=== PATIENT | male | born 1940 | race African-American/Black ===

== ENCOUNTER 2017-03-15 19:06 | Inpatient (IN) ==
[2017-03-15] MEDS ORDERED: ONDANSETRON 4 MG/2 ML VIAL IV STA (20:04)
[2017-03-15] MEDS ORDERED: ALBUTEROL/IPRATROPIUM 3 ML NEB RESP TX STA (20:04)
[2017-03-15] MEDS ORDERED: FUROSEMIDE 100 MG/10 ML VIAL IV STA (20:04)
[2017-03-15] MEDS ORDERED: MORPHINE 2 MG/1 ML SYRINGE IV STA (20:04)
--- NOTE | 2017-03-15 20:23 | XRay Report ---
XR chest 1V portable Indication: Shortness of breath Comparison: 08 February 2017 Findings: The heart and mediastinum are stable in size and configuration with cardiomegaly. The pulmonary vascularity is normal in caliber. No lung infiltrates, effusions, pneumothorax or other abnormality is demonstrated. Impression: No acute cardiopulmonary disease. PROCEDURE INTERPRETED AT [facility] DEPARTMENT OF RADIOLOGY Final Report Signed by: Dr. Ramiro Us
--- NOTE | 2017-03-15 20:33 | Emergency Department Note ---
ISrinivasan Emily, am scribing for, and in the presence of, Aubrey Briones MD 20: 08. IAnselmo Charles R, MD, personally performed the services described in this documentation, ascribed by Yudith Mattson in my presence, and it is both accurate and complete . Arrival - Arrival Chief Complaint: Extremity Problem Stated Complaint: FLUID/EDEMA ED Nursing Triage Note: pt states he weighs 17 pounds more than he did 3 days ago and home health nurse sent pt here for fluid overload. pt takes lasix but says it doesnt seem to be working. Mode of Arrival: Wheelchair Limitations: No Limitations Source: Patient - History of Present Illness HPI Narrative: Pt is a 76 y/o male who came to ED with c/o SOB that has worsened last 3 days. Pt has associated sxs of orthopnea, pedal edema in bilateral lower extremities and recent weight gain, but denies chest pain or nausea. Pt has gina boots on both lower extremities with blisters, per pt. Pt notes taking his Lasix but no relief. Pt reports last hospital visit was due to SOB and he stayed for 2 weeks. Pt's PCP is Dr. Witt. PMHx of NIDDM, CAD, AR, CHF, HLD. Onset (ago): day(s) Consistency: constant Severity: moderate, severe Severity scale (1-10): 8 Quality: fullness Allergies/Adverse Reactions: Allergies Allergy/AdvReac Type Severity Reaction Status Date / Time No Known Allergies Allergy Verified 10/15/15 10:01 Home Medications: Home Medications Medication Instructions Recorded Confirmed Type Atorvastatin [Lipitor] 10 mg PO QAM 10/15/15 03/15/17 History Tiotropium Inhalation [Spiriva 18 mcg INH QAM 09/20/16 03/15/17 History Handihaler] Albuterol Sulfate [Proair HFA] 2 puffs INH QID PRN 02/08/17 03/15/17 History Aspirin Chew Tab 81 mg PO QAM 02/08/17 03/15/17 History Carvedilol [Coreg] 6.25 mg PO Q12H #60 tablet 02/16/17 03/15/17 Rx Furosemide Tab [Lasix Tab] 60 mg PO BID DIURETIC #60 tablet 02/16/17 03/15/17 Rx Isosorbide Dinitrate [Isordil] 20 mg PO TID #90 tablet 02/16/17 03/15/17 Rx hydrALAZINE TAB [Apresoline Tab] 25 mg PO TID #90 tablet 02/16/17 03/15/17 Rx metOLazone [Zaroxolyn] 2.5 mg PO DAILY #30 tablet 02/16/17 03/15/17 Rx Review of System - Review of System 12 point system: reviewed and no additional remarkable complaints except as stated - Review of System Constitutional: Present: weight gain. Absent: chills, fever Respiratory: Present: cough, respiratory distress, wheezing Cardiovascular: Present: orthopnea, edema. Absent: chest pain, palpitations, syncope Gastrointestinal: Absent: abdominal pain, nausea, vomiting Musculoskeletal: Absent: arm pain, back pain, leg pain, neck pain Skin: Absent: rash Neurological: Absent: headache Psychiatric: Absent: anxiety Medical,Surgical,& Family Hx - Medical History Cardio: History of: CHF, CAD, Hypertension, AR No history of: Cardiac Dysrhythmia, Pacemaker, PVD Psychological: No history of: Anxiety Disorders Neurology: History of: Brain Aneurysm ("around 1999") Endocrine: History of: Diabetes Mellitus (NIDDM), Dyslipidemia Rheumatology: No history of;: Systemic Lupus Erythematosus Respiratory: History of: COPD, Obstructive Sleep Apnea No history of: Pulmonary Hypertension Renal: History of: Renal Problems (CRI, stage II) Genitourinary: No history of: Recurring Urinary Tract Infections Gastrointestinal: No history of: GERD, Hepatitis, Liver Problems, Pancreatitis, Gastrointestinal Cancer Musculoskeletal: History of: Musculoskeletal Problems (osteoarthritis) No history of: Back/Neck Problems Hematology: No history of: Anemia, Bleeding Problems, Sickle Cell Disease Other: No history of: Cancer - Surgical History Cardiac Surgeries: Sugical HX of: Cardiac Catheterization (1st OM DAMEON 09/10 & pPDA DAMEON 11/11) Patient Denies: Carotid Endarterectomy, Internal Defibrillator Neurologic Surgeries: Surgical HX of: Brain Aneurysm ("around 1999"), Neurologic Surgery HEENT Surgeries: Surgical HX of: Eye Surgery Patient denies: Carotid Endarterectomy, Thyroid Surgery Orthopedic Surgeries: Patient denies;: Implanted Devices - Family History Family History: Reports;: Family Cancer, Family Heart Disease, Family Hypertension Denies;: Family Diabetes, Family Stroke - Social History Smoking Status: Former smoker Frequency of Alcohol Use: None Type of Drug Use: None Exam Vital Signs: Vital Signs Temperature 98.5 F 03/15/17 19:21 Pulse Rate 63 03/15/17 20:09 Respiratory Rate 20 03/15/17 20:09 Blood Pressure 113/66 03/15/17 19:21 O2 Sat by Pulse Oximetry 98 03/15/17 20:09 - General General appearance: alert, in no apparent distress - Head Head exam: Present: atraumatic, normocephalic - Eye Eye exam: Present: PERRL, EOMI - ENT ENT exam: Present: mucous membranes moist. Absent: mucous membranes dry - Neck Neck exam: Present: full ROM. Absent: tenderness - Chest Chest inspection: Present: symmetric chest wall rise. Absent: tenderness - Respiratory Respiratory exam: Present: rales (bilateral). Absent: normal lung sounds bilaterally (decreased breath sounds), rhonchi, wheezes - Cardiovascular Cardiovascular exam: Present: bradycardia, normal heart sounds - Abdominal Exam Abdominal exam: Present: soft, distention. Absent: tenderness, guarding, rebound - Extremities Exam Extremities exam: Present: full ROM, pedal edema (+3 weeping; with bilateral gina boots). Absent: tenderness - Neurological Exam Neurological exam: Present: alert, oriented X3, CN II-XII intact. Absent: motor sensory deficit - Psychiatric Psychiatric exam: Present: normal affect, normal mood - Skin Skin exam: Present: warm, dry Course - Consultations Consultation #1: Hospitalist will admit patient Time: 21:48 Results - Labs CBC & BMP: 03/15/17 20:34 03/15/17 20:34 Lab Results: I have reviewed the patients labs Labs: Laboratory Tests 03/15/17 20:34 Hgb 11.1 L Hct 33.6 L MCV 83.8 L RDW 18.6 H Neut % (Auto) 77.0 H Lymph % (Auto) 12.9 L Lymph # (Auto) 1.1 L - Diagnostic Findings Procedure: Chest x-ray: report reviewed by me (No acute cardiopulmonary disease. ) Critical Care Time Critical Care Time: Yes Total Critical Care Time: 60 Disposition Clinical Impression: Anasarca associated with disorder of kidney, Chronic renal failure, Acute on chronic congestive heart failure, Elevated troponin, Obstructive sleep apnea, Ischemic cardiomyopathy, Obesity, Lower extremity edema, Weight gain Case discussed with: patient Disposition: Still a Patient Condition: Stable Time of Disposition: 21:49
[2017-03-15 20:56] LABS: Basophils % 0.1 % (0.0-0.8); Eosinophils % 0.4 % (0.00-10.9); Hematocrit 33.6 VOL% (42.0-52.0); Hemoglobin 11.1 GM/DL (14.0-18.0); Immature Granulocytes % 0.2 %; Immature Granulocytes Absolute 0.02 #; Lymphocytes # 1.1 10*3/uL (1.4-4.0); Lymphocytes % 12.9 % (21.2-54.2); Mean Corpuscular Hemoglobin 28 PG (27-34); Mean Corpuscular Volume 83.8 FL (87-102); Mean Platelet Volume 11.2 FL (9.6-12.0); Monocytes # 0.8 10*3/uL (0.11-0.8); Monocytes % 9.4 % (1.7-12.7); Neutrophils # 6.6 10*3/uL (1.4-7.4); Platelet Count 145 T/CUMM (130-400); Red Blood Count 4.01 MC/CUMM (3.8-5.5); Red Cell Distribution Width 18.6 % (9.3-17.3); White Blood Count 8.5 T/CUMM (4-12)
[2017-03-15] MEDS ORDERED: MORPHINE 2 MG/1 ML SYRINGE ONE (20:58)
[2017-03-15] MEDS ORDERED: ONDANSETRON 4 MG/2 ML VIAL ONE (20:58)
[2017-03-15] MEDS ORDERED: FUROSEMIDE 100 MG/10 ML VIAL ONE (20:58)
[2017-03-15 21:07] LABS: INR 1.3; PT Patient Result 13.6 SECS
[2017-03-15 21:28] LABS: Albumin 3.5 G/DL (3.4-5.0); Bilirubin,Total 2.3 MG/DL (0.2-1.0); Calcium 8.6 MG/DL (8.5-10.1); Magnesium 2.4 MG/DL (1.8-2.4); Osmolality,Calculated 289.3 MOS/KG (273-304); Potassium 4.7 MMOL/L (3.5-5.1); Total Protein 7.5 G/DL (6.4-8.3)
[2017-03-15 21:36] LABS: Troponin I Only 0.328 NG/ML (0.00-0.045)
[2017-03-15] MEDS ORDERED: ONDANSETRON 4 MG/2 ML VIAL IV PRN (21:49)
[2017-03-15] MEDS ORDERED: ALBUTEROL 2.5 MG/3 ML NEB RESP TX PRN (22:07)
[2017-03-15] MEDS: ENOXAPARIN 30 MG/0.3 ML SYRINGE SUBCUT SCH (23:45)
[2017-03-15] MEDS: CARVEDILOL 6.25 MG TABLET PO SCH (23:47)
--- NOTE | 2017-03-16 00:54 | Hospitalist History & Physical ---
Assessment and Plan (1) CHF (congestive heart failure) Status: Chronic Assessment and plan: Last echocardiogram 11/23/2016 revealed a severely reduced LV systolic function with global hypokinesis, EF 10-15%. BNP >4000. IV Lasix 40mg BID. Continue metolazone. Followed by Dr. Biswas. Consult cardiology. Current Visit: No Qualifiers: Congestive heart failure type: combined Congestive heart failure chronicity : acute on chronic Qualified Code(s): I50.43 - Acute on chronic combined systolic (congestive) and diastolic (congestive) heart failure (2) Essential hypertension Status: Chronic Assessment and plan: Well controlled on current meds. Continue home meds. Monitor BP. Current Visit: No (3) Elevated troponin I level Status: Acute Assessment and plan: Troponin. >0.3. Per hospital records, this appears to be chronic. Will recheck in am. Cardiology has been consulted. Current Visit: No (4) Peripheral edema Status: Chronic Assessment and plan: Patient weeping from CHF exacerbation. Lower extremities wrapped today by home health nurse. Consult wound care for continued management. Current Visit: No (5) CKD (chronic kidney disease) stage 3, GFR 30-59 ml/min Status: Chronic Assessment and plan: Creatinine 2.5 today. This appears to be patient's baseline. Will cautious diurese. Consult nephrology as necessary. Current Visit: No (6) Weight gain Status: Acute Current Visit: Yes History of Present Illness Chief complaint: CHF exacerbation History of present illness: Mr. Rangel is a 76 year old male with a past medical history significant for CHF, hypertension, CAD with previous stents presents to the ED with worsening shortness of breath and bilateral lower extremity edema with onset 3 days ago. The patient states that his home health nurse recommended he return to the hospital today after noticing that he had gained 9 pounds since Monday and that the weeping in his lower extremities is not improving as hoped. He reports that his has been compliant with his home medications, however he does not feel as though the Lasix is working as well as it has in the past. He notes that he is not having to urinate as frequently as he was accustomed to with diuretics. He was recently hospitalized here a few weeks ago for similar complaints. The patient was seen on the telemetry floor today. He had been diuresed with 60 mg IV Lasix and received a duoneb with minimum response. On exam, he denies headache, chest pain, N/V. He does have both legs bandaged and does not appear to be weeping through the bandage. CXR shows no acute cardiopulmonary process. Labs reveal H7H 11.1 and 33.6, BUN 38, Cr 2.5, Trop 0.320, BNP 4014. The patient is followed by Dr. Biswas for cardiology. He is admitted to the hospital medicine service for further evaluation and treatment. He is a full code. Home Medications Medication Instructions Recorded Confirmed Type Atorvastatin [Lipitor] 10 mg PO QAM 10/15/15 03/15/17 History Tiotropium Inhalation [Spiriva 18 mcg INH QAM 09/20/16 03/15/17 History Handihaler] Albuterol Sulfate [Proair HFA] 2 puffs INH QID PRN 02/08/17 03/15/17 History Aspirin Chew Tab 81 mg PO QAM 02/08/17 03/15/17 History Carvedilol [Coreg] 6.25 mg PO Q12H #60 tablet 02/16/17 03/15/17 Rx Furosemide Tab [Lasix Tab] 60 mg PO BID DIURETIC #60 tablet 02/16/17 03/15/17 Rx Isosorbide Dinitrate [Isordil] 20 mg PO TID #90 tablet 02/16/17 03/15/17 Rx hydrALAZINE TAB [Apresoline Tab] 25 mg PO TID #90 tablet 02/16/17 03/15/17 Rx metOLazone [Zaroxolyn] 2.5 mg PO DAILY #30 tablet 02/16/17 03/15/17 Rx Allergies Allergy/AdvReac Type Severity Reaction Status Date / Time No Known Allergies Allergy Verified 10/15/15 10:01 Medical,Surgical,& Family Hx - Medical History Cardio: History of: CHF, CAD, Hypertension, AR No history of: Cardiac Dysrhythmia, Pacemaker, PVD Psychological: No history of: Anxiety Disorders Neurology: History of: Brain Aneurysm ("around 1999") Endocrine: History of: Diabetes Mellitus (NIDDM), Dyslipidemia Rheumatology: No history of;: Systemic Lupus Erythematosus Respiratory: History of: COPD, Obstructive Sleep Apnea No history of: Pulmonary Hypertension Renal: History of: Renal Problems (CRI, stage II) Genitourinary: No history of: Recurring Urinary Tract Infections Gastrointestinal: No history of: GERD, Hepatitis, Liver Problems, Pancreatitis, Gastrointestinal Cancer Musculoskeletal: History of: Musculoskeletal Problems (osteoarthritis) No history of: Back/Neck Problems Hematology: No history of: Anemia, Bleeding Problems, Sickle Cell Disease Other: No history of: Cancer - Surgical History Cardiac Surgeries: Sugical HX of: Cardiac Catheterization (1st OM [facility] 09/10 & pPDA DAMEON 11/11) Patient Denies: Carotid Endarterectomy, Internal Defibrillator Neurologic Surgeries: Surgical HX of: Brain Aneurysm ("around 1999"), Neurologic Surgery HEENT Surgeries: Surgical HX of: Eye Surgery Patient denies: Carotid Endarterectomy, Thyroid Surgery Orthopedic Surgeries: Patient denies;: Implanted Devices - Family History Family History: Reports;: Family Cancer, Family Heart Disease, Family Hypertension Denies;: Family Diabetes, Family Stroke - Social History Smoking Status: Former smoker Frequency of Alcohol Use: None Type of Drug Use: None Marital Status: Single Lives With:: Alone Functional capacity: independent ambulation - Constitutional Constitutional: Present: fatigue, weight gain. Absent: fever(s), frequent falls , headache(s) - EENT Eyes: Absent: blurry vision, loss of vision Nose, mouth and throat: Absent: headache(s), vertigo - Cardiovascular Cardiovascular: Present: dyspnea, dyspnea on exertion, edema. Absent: chest pain at rest, chest pain with activity, lightheadedness - Respiratory Respiratory: Present: dyspnea, dyspnea on exertion. Absent: cough, wheezing, pain on inspiration - Gastrointestinal Gastrointestinal: Absent: abdominal pain, constipation, diarrhea, nausea, vomiting - Genitourinary Genitourinary: Absent: difficulty urinating, dysuria - Neurological Neurological: Absent: abnormal speech, confusion, dizziness, numbness, syncope - Psychiatric Psychiatric: Absent: anxiety, depression - Endocrine Endocrine: Absent: cold intolerance, fatigue, heat intolerance - Hematologic/Lymphatic Hematologic/Lymphatic: Absent: easy bleeding, easy bruising Exam - Constitutional Vitals: Period Temp Pulse Resp BP Sys/[place] Pulse Ox Last 24 Hr 98.3 F 62-64 20-20 108-128/74-80 91-94 General appearance: no acute distress, morbidly obese - Head Head exam: Present: normal inspection, normocephalic, atraumatic - Eye Eye exam: Present: EOMI Pupils: Present: ABY - Neck Neck exam: Present: normal inspection. Absent: lymphadenopathy, tenderness - Respiratory Respiratory exam: Present: decreased breath sounds. Absent: rales, rhonchi - Cardiovascular Cardiovascular exam: Present: regular rate and rhythm - GI/Abdominal GI/Abdominal exam: Present: normal bowel sounds. Absent: mass, tenderness, rebound - Extremities Exam Extremities exam: Present: edema - Back Exam Back exam: Absent: CVA tenderness (L), CVA tenderness (R) - Neurological Exam Neurological exam: Present: alert, oriented X3, CN II-XII intact - Psychiatric Psychiatric exam: Present: normal affect, normal mood - Skin Skin exam: Present: normal color, warm Results - Labs CBC & BMP: 03/15/17 20:34 03/15/17 20:34 Lab Results: I have reviewed the past 24 hour labs - EKG EKG results: interpreted by MIHAID - Diagnostic Findings Procedure: Chest x-ray: image reviewed by me, report reviewed by me
[2017-03-16 06:06] LABS: Calcium 8.1 MG/DL (8.5-10.1); Magnesium 2.4 MG/DL (1.8-2.4); Osmolality,Calculated 292.1 MOS/KG (273-304); Potassium 4.5 MMOL/L (3.5-5.1)
[2017-03-16 06:08] LABS: Troponin I Only 0.299 NG/ML (0.00-0.045)
[2017-03-16] MEDS: IPRATROPIUM 500 MCG/2.5 ML NEB RESP TX SCH ×4 (06:57→18:48)
--- NOTE | 2017-03-16 08:22 | EKG Report ---
Stationary ECG Study [facility] ER Test Date: 03/15/2017 8:38:20 PM Pat Name: MARIPOSA ERVIN Department: Room: 293 Gender: M Region Manager: : 1940 Requested by: Aubrey Pena Order Number: [id number] Reading MD: PEPE ÁLVAREZ Intervals [place] Rate: 64 P: 24 OK: 172 QRS: 14 QRSD: 116 T: 157 QT: 465 QTc: 474 Interpretive Statements SINUS RHYTHM WITH OCCASIONAL VENTRICULAR PREMATURE COMPLEXES MODERATE INTRAVENTRICULAR CONDUCTION DELAY ABNORMAL ST-T WAVE, NONDIAGNOSTIC Electronically Signed On 03-16-17 11:25:37 CDT by PEPE ÁLVAREZ [email or web address]
[2017-03-16] MEDS: ASPIRIN CHEW 81 MG TABLET PO SCH (09:25)
[2017-03-16] MEDS: ATORVASTATIN 20 MG TABLET PO SCH (09:25)
[2017-03-16] MEDS: metOLazone 2.5 MG TABLET PO SCH (09:28)
[2017-03-16] MEDS: FUROSEMIDE 40 MG/4 ML VIAL IV SCH ×2 (09:29→16:22)
[2017-03-16] MEDS: CARVEDILOL 6.25 MG TABLET PO SCH ×2 (09:29→23:57)
[2017-03-16] MEDS: ISOSORBIDE DINITRATE 20 MG TABLET PO SCH ×3 (09:29→22:22)
[2017-03-16] MEDS: hydrALAZINE 25 MG TABLET PO SCH ×3 (09:29→22:22)
[2017-03-16 10:55] LABS: Troponin I Only 0.305 NG/ML (0.00-0.045)
[2017-03-16] MEDS ORDERED: SKIN HEALING OINT (AQUAPHOR) 50 GM TUBE TOP PRN (11:19)
--- NOTE | 2017-03-16 15:53 | Cardiology Consult Note ---
Husam Salazar Vanessa RN, am scribing for, and in the presence of, Josemanuel Biswas MD 15:53. Assessment and Plan - Time spent with patient Time spent with patient: Greater than 30 minutes (1) Acute on chronic congestive heart failure Status: Acute Current Visit: Yes (2) Elevated troponin Status: Acute Current Visit: Yes (3) Obstructive sleep apnea Status: Acute Current Visit: Yes (4) Ischemic cardiomyopathy Status: Chronic Current Visit: Yes (5) Obesity Status: Chronic Current Visit: Yes Qualifiers: Obesity type: due to excess calories (6) Chronic renal insufficiency, stage III (moderate) Status: Acute Current Visit: No History of Present Illness - Data of Consult Patient: known to practice within the last 3 years Consult date: 03/16/17 Requesting Physician: Arnel Wayne - Consult Narrative Reason for consult: SOB, CHF exacerbation History of present illness: PRIMARY UROGYNAECOLOGIST: DR. JAY BISWAS PCP:[facility] CONSULT NOTE: SOB, CHF EXACERBATION Mr. Rangel is a 76 year old black male routinely followed by cardiology. Past medical history includes ischemic cardiomyopathy, CHF with recurrent exacerbations requiring hospitalizations in October and December this year, obstructive sleep apnea, type 2 diabetes with peripheral neuropathy, COPD, hypertension, coronary artery disease with previously placed right coronary artery stent, and degenerative arthritis of the knees. He is a former tobacco user. In November 23, 2015, patient had an abnormal but stable exercise stress test which demonstrated inferior scar, no ischemia, and an ejection fraction of 32% with poor work capacity. Per echocardiogram November 23, 2016, global hypokinesis with an ejection fraction of 10-15%, normal diastolic function, mild LVH, moderate biatrial enlargement, moderate to severe TR and pulmonary hypertension with a PA pressure 50 mmHg. Last admission for CHF exacerbation was February 08 - February 16. During that admission, his Lasix dosage was increased to 60 mg by mouth twice daily and beta-kylee decreased. New medications added include Isordil, metolazone, and hydralazine. After discharge home, Mr. Rangel has been feeling relatively well until approximately 3 days ago when he noticed his chronic shortness of breath worsening and an increase in bilateral lower extremity edema. Home health nurse noted he had gained 9 pounds since Monday, weeping of his lower extremities not improved, and he was referred to the emergency room for further evaluation. Reports he has been compliant with medications but recently Lasix has not been as effective as it has been in the past. BNP on admission 4089. Received Lasix 60 mg IV while in the emergency room with minimal output. He was admitted to the telemetry floor per hospital medicine for treatment of acute on chronic systolic heart failure with a depressed ejection fraction of 10-15%. Cardiology consulted for further treatment and recommendations. Patient seen and examined. Upon further interview with patient, he reports that he has not been taking his medications as prescribed at previous discharge. He tells me that he is not taking "a couple of those blood pressure medicines" but he cannot specify which ones and attributes this to his sister not picking them up from the pharmacy. Reports his shortness of breath is improved, and he feels like he is breathing better this morning. Patient's biggest complaint is of bilateral lower extremity weeping and not urinating as well over the past week. Sinus rhythm per telemetry monitoring with pulse rate in the 60s, and EKG is without finding for acute ischemic change. Blood pressure is stable at 110/70. He has not had any recent or current chest pain. Labs reviewed. WBC 8500. H&H 11.1 and 33.6 with MCV 83.8. Sodium 142. Potassium 4.5. Chloride 108. Magnesium 2.4. Creatinine is 2.5 with a GFR of 39. (Review of old records shows this is near baseline creatinine-nephrology to evaluate). Troponin level 2 0.320, 0.299 (chronically elevated) Cardiology addendum Patient examined and chart reviewed and discussed with nurse Corin Brown RN. 76-year-old man with ischemic cardia myopathy, EF 15% range. Readmitted with recurrent systolic and diastolic heart failure. BNP level 4014 Chest x-ray Marked cardiomegaly globular appearance with cephalization of flow O2 sat 97 on 2 L cannula blood pressure 110/76 Creatinine 2.50 BUN 40 potassium 4.5 stable. Status post non-Q-wave posterior infarction with CHF September 26, 2012 OM stent Status post PDA stent November 01, 2012 Abnormal but stable exercise Cardiolite stress test November 23, 2015 demonstrating inferior scar, no ischemia, EF 30% and poor work capacity Recurrent admissions for CHF September 21, 2016 and again November 23, 2016. Echo done in October showed ejection fraction of 15% range with diastolic dysfunction and moderate TR PA pressure 55 Longtime tobacco abuse Obstructive sleep apnea Chronic renal failure Obesity Plan Nasal cannula O2 2 L/min 40 mg Lasix IV twice daily Duo nebs Carvedilol 6.2 mg twice daily Hydralazine 25 g 3 times daily 30 mg subcu Lovenox BMP a.m. CC: Ana Lilia Quiles MD - Home Medications and Allergies Home Medications: Home Medications Medication Instructions Recorded Confirmed Type Atorvastatin [Lipitor] 10 mg PO QAM 10/15/15 03/15/17 History Tiotropium Inhalation [Spiriva 18 mcg INH QAM 09/20/16 03/15/17 History Handihaler] Albuterol Sulfate [Proair HFA] 2 puffs INH QID PRN 02/08/17 03/15/17 History Aspirin Chew Tab 81 mg PO QAM 02/08/17 03/15/17 History Carvedilol [Coreg] 6.25 mg PO Q12H #60 tablet 02/16/17 03/15/17 Rx Furosemide Tab [Lasix Tab] 60 mg PO BID DIURETIC #60 tablet 02/16/17 03/15/17 Rx Isosorbide Dinitrate [Isordil] 20 mg PO TID #90 tablet 02/16/17 03/15/17 Rx hydrALAZINE TAB [Apresoline Tab] 25 mg PO TID #90 tablet 02/16/17 03/15/17 Rx metOLazone [Zaroxolyn] 2.5 mg PO DAILY #30 tablet 02/16/17 03/15/17 Rx Allergies/Adverse Reactions: Allergies Allergy/AdvReac Type Severity Reaction Status Date / Time No Known Allergies Allergy Verified 10/15/15 10:01 - Constitutional Constitutional: Present: as per HPI - EENT Eyes: Present: as per HPI Nose, mouth and throat: Present: as per HPI - Cardiovascular Cardiovascular: Present: as per HPI - Respiratory Respiratory: Present: as per HPI - Gastrointestinal Gastrointestinal: Present: as per HPI - Genitourinary Genitourinary: Present: as per HPI - Neurological Neurological: Present: as per HPI - Psychiatric Psychiatric: Present: as per HPI - Endocrine Endocrine: Present: as per HPI - Hematologic/Lymphatic Hematologic/Lymphatic: Present: as per HPI Medical,Surgical,& Family Hx - Medical History Cardio: History of: CHF, CAD, Hypertension, [place] No history of: Cardiac Dysrhythmia, Pacemaker, PVD Psychological: No history of: Anxiety Disorders Neurology: History of: Brain Aneurysm ("around 1999") Endocrine: History of: Diabetes Mellitus (NIDDM), Dyslipidemia Rheumatology: No history of;: Systemic Lupus Erythematosus Respiratory: History of: COPD, Obstructive Sleep Apnea No history of: Pulmonary Hypertension Renal: History of: Renal Problems (CRI, stage II) Genitourinary: No history of: Recurring Urinary Tract Infections Gastrointestinal: No history of: GERD, Hepatitis, Liver Problems, Pancreatitis, Gastrointestinal Cancer Musculoskeletal: History of: Musculoskeletal Problems (osteoarthritis) No history of: Back/Neck Problems Hematology: No history of: Anemia, Bleeding Problems, Sickle Cell Disease Other: No history of: Cancer - Surgical History Cardiac Surgeries: Sugical HX of: Cardiac Catheterization (1st OM DAMEON 09/10 & pPDA DAMEON 11/11) Patient Denies: Carotid Endarterectomy, Internal Defibrillator Neurologic Surgeries: Surgical HX of: Brain Aneurysm ("around 1999"), Neurologic Surgery HEENT Surgeries: Surgical HX of: Eye Surgery Patient denies: Carotid Endarterectomy, Thyroid Surgery Orthopedic Surgeries: Patient denies;: Implanted Devices - Family History Family History: Reports;: Family Cancer, Family Heart Disease, Family Hypertension Denies;: Family Diabetes, Family Stroke - Social History Smoking Status: Former smoker Frequency of Alcohol Use: None Type of Drug Use: None Physical Examination Vital Signs Temp Pulse Resp BP Pulse Ox 98.5 F 83 22 113/66 91 L 03/15/17 19:21 03/15/17 19:21 03/15/17 19:21 03/15/17 19:21 03/15/17 19:21 General: Present: No Apparent Distress, Other (Morbid obesity) HEENT: Present: Normocephaly. Absent: Pallor Neck: Present: Supple Neck, Midline Trachea, No Masses, No Bruit Cardiac: Present: Reg Rate and Rhythm, No Murmur. Absent: Tachycardia, Bradycardia Lungs: Present: Decreased Breath Sounds, No Wheezes, No Rhonchi Neuro: Present: Weakness, Grossly Intact. Absent: Numbness, Tingling, Resting Tremor, Essential Tremor Abdomen: Present: Soft, Other (Obese). Absent: Tender, Firm, Distended Skin: Present: Other (Bilateral lower extremities with compression dressings R/ T peripheral edema with weeping are dry and intact) Musculoskeletal: Present: Decreased Range of Motion Extremities: Present: No Cyanosis, Normal Upper Extr. Pulses (2-3+), Normal Lower Extr. Pulses (1-2+), Edema (BLE with 3+ pitting edema) Result/EKG - Labs CBC & BMP: 03/15/17 20:34 03/16/17 05:04 Lab Results: I have reviewed the past 24 hour labs Labs: Laboratory Results - last 24 hr 03/15/17 03/16/17 03/16/17 23:20 05:04 05:04 Sodium 142 Potassium 4.5 Chloride 108 H Carbon Dioxide 25 Anion Gap 13.5 BUN 40 H Creatinine 2.50 H GFR Calculation 39 BUN/Creatinine Ratio 16.00 Glucose 104 Calculated Osmolality 292.1 Calcium 8.1 L Magnesium 2.4 Total Creatine Kinase 73 67 CK-MB (CK-2) < 1.0 < 1.0 Troponin I 0.320 H 0.299 H - Diagnostic Findings Procedure: Chest x-ray: image reviewed by me, report reviewed by me - EKG EKG results: interpreted by me, no acute changes EKG shows: sinus rhythm IZulay Thomas, MD, personally performed the services described in this documentation, ascribed by Rupali Weiner RN in my presence, and it is both accurate and complete 553 .
[2017-03-16] MEDS: ENOXAPARIN 30 MG/0.3 ML SYRINGE SUBCUT SCH (22:20)
[2017-03-17] MEDS: IPRATROPIUM 500 MCG/2.5 ML NEB RESP TX SCH ×4 (07:37→21:03)
[2017-03-17] MEDS: metOLazone 2.5 MG TABLET PO SCH (09:01)
[2017-03-17] MEDS: hydrALAZINE 25 MG TABLET PO SCH ×3 (09:01→21:52)
[2017-03-17] MEDS: ATORVASTATIN 20 MG TABLET PO SCH (09:01)
[2017-03-17] MEDS: ASPIRIN CHEW 81 MG TABLET PO SCH (09:01)
[2017-03-17] MEDS: ISOSORBIDE DINITRATE 20 MG TABLET PO SCH ×3 (09:02→23:09)
[2017-03-17] MEDS: FUROSEMIDE 40 MG/4 ML VIAL IV SCH ×2 (09:02→16:30)
[2017-03-17] MEDS: CARVEDILOL 6.25 MG TABLET PO SCH ×2 (10:24→23:09)
[2017-03-17] MEDS: ACETAMINOPHEN 325 MG TABLET PO PRN (11:01)
--- NOTE | 2017-03-17 13:17 | Hospitalist Progress Note ---
Assessment and Plan (1) Acute on chronic congestive heart failure Status: Acute Assessment and plan: 1)acute on chronic CHF- diuresing, continue meds. LE edema a little better, breathing easily, no orthopnea. 2)DM 3)CKD- repeat Creatinine in am to monitor his reanl function while diuresing. 4)LE wounds/weeping- addressed by wound care nurse. The skin breakdown is due to LE edema. 5)HTN- controlled 6)elevated troponin- this is his baseline. Current Visit: Yes (2) status post brain aneurysm clipping Status: Chronic Current Visit: No (3) Type 2 diabetes mellitus Status: Chronic Current Visit: No Qualifiers: Diabetes mellitus complication detail: with chronic kidney disease Chronic kidney disease stage: stage 3 (moderate) (4) CAD (coronary artery disease) Status: Chronic Current Visit: No Qualifiers: Coronary Disease-Associated Artery/Lesion type: standing [place] artery (5) CKD (chronic kidney disease) stage 3, GFR 30-59 ml/min Status: Chronic Current Visit: No (6) Chronic renal failure Status: Acute Current Visit: Yes (7) Obstructive sleep apnea Status: Acute Current Visit: Yes Hospitalist: Subjective Interval history: Mr Rangel is up on the side of the bed, comfortable. He had a sharp pain in his left shoulder blade when he bent over earlier, but it has been relieved with Tylenol. He reports having good UOP. Exam - Constitutional Vitals: Period Temp Pulse Resp BP Sys/[place] Pulse Ox Last 24 Hr 97.3 F-97.4 F 60-77 16-20 117-134/58-70 85-100 General appearance: no acute distress (breathing comfortably, talking easily), morbidly obese - Eye Eye exam: Present: EOMI. Absent: scleral icterus - Respiratory Respiratory exam: Present: clear to auscultation bilaterally - Cardiovascular Cardiovascular exam: Present: regular rate and rhythm - GI/Abdominal GI/Abdominal exam: Present: normal bowel sounds, soft - Extremities Exam Extremities exam: Present: edema (legs dressed, dry) - Neurological Exam Neurological exam: Present: alert, oriented X3 - Psychiatric Psychiatric exam: Present: normal affect, normal mood Results - Labs CBC & BMP: 03/15/17 20:34 03/16/17 05:04 Lab Results: I have reviewed the past 24 hour labs
--- NOTE | 2017-03-17 14:17 | Cardiology Progress Note ---
Husam Salazar Vanessa, RN, am scribing for, and in the presence of, Josemanuel Biswas MD 14:17. Assessment and Plan - Time spent with patient Time spent with patient: Greater than 30 minutes (1) Acute on chronic congestive heart failure Status: Acute Current Visit: Yes (2) Elevated troponin Status: Acute Current Visit: Yes (3) Obstructive sleep apnea Status: Acute Current Visit: Yes (4) Ischemic cardiomyopathy Status: Chronic Current Visit: Yes (5) Obesity Status: Chronic Current Visit: Yes Qualifiers: Obesity type: due to excess calories (6) Chronic renal insufficiency, stage III (moderate) Status: Acute Current Visit: No Cardiology - PN: Subj Interval history: PRIMARY MANAGER CRITICAL CARE UNIT: DR. JAY BISWAS PCP:[facility] CARDIOLOGY CONSULT NOTE: SOB, CHF EXACERBATION Mr. Rangel is a 76 year old black male routinely followed by cardiology. Past medical history includes ischemic cardiomyopathy, CHF with recurrent exacerbations requiring hospitalizations in October and December this year, obstructive sleep apnea, type 2 diabetes with peripheral neuropathy, COPD, hypertension, coronary artery disease with previously placed right coronary artery stent, and degenerative arthritis of the knees. He is a former tobacco user. In November 23, 2015, patient had an abnormal but stable exercise stress test which demonstrated inferior scar, no ischemia, and an ejection fraction of 32% with poor work capacity. Per echocardiogram November 23, 2016, global hypokinesis with an ejection fraction of 10-15%, normal diastolic function, mild LVH, moderate biatrial enlargement, moderate to severe TR and pulmonary hypertension with a PA pressure 50 mmHg. Last admission for CHF exacerbation was February 08 - February 16. During that admission, his Lasix dosage was increased to 60 mg by mouth twice daily and beta-kylee decreased. New medications added include Isordil, metolazone, and hydralazine. After discharge home, Mr. Rangel has been feeling relatively well until approximately 3 days ago when he noticed his chronic shortness of breath worsening and an increase in bilateral lower extremity edema. Home health nurse noted he had gained 9 pounds since Monday, weeping of his lower extremities not improved, and he was referred to the emergency room for further evaluation. Reports he has been compliant with medications but recently Lasix has not been as effective as it has been in the past. BNP on admission 4089. Received Lasix 60 mg IV while in the emergency room with minimal output. He was admitted to the telemetry floor per hospital medicine for treatment of acute on chronic systolic and diastolic heart failure with a depressed ejection fraction of 10-15%. Cardiology consulted for further treatment and recommendations. MARCH 17, 2017: Mr. Lares is sleeping soundly this morning after breakfast with great appetite. No orthopnea or acute distress noted. He wakes easily and denies acute dyspnea, chest discomfort. He reports bilateral lower extremities discomfort improved after compression dressings placed yesterday. Systolic BP 120-135 mmHg. Sinus rhythm, pulse rate 60s with occasional PAC. No ectopy or arrhythmia. No labs available this morning for review. Cardiology addendum Patient examined and chart reviewed. Breathing a little easier. Weight 123.7 kg Blood pressure 124/70 Telemetry shows sinus rhythm rare PVCs Regular rhythm with no gallop Decreased breath sounds few crackles at the bases bilaterally Chronic leg edema Plan Duo nebs 40 mg Lasix IV twice daily Hydralazine 25 mg 3 times daily Coreg 6.25 mg twice daily BMP in a.m. Exam (Progress Note) - Constitutional Vitals: Period Temp Pulse Resp BP Sys/[place] Pulse Ox Last 24 Hr 97.3 F-97.8 F 60-68 16-20 99-134/58-70 85-100 Exam: General: Present: No Apparent Distress, Other (Morbid obesity) HEENT: Present: Normocephaly. Absent: Pallor Neck: Present: Supple Neck, Midline Trachea, No Masses, No Bruit Cardiac: Present: Reg Rate and Rhythm, No Murmur. Absent: Tachycardia, Bradycardia Lungs: Present: Decreased Breath Sounds with mild expiratory wheeze. No Rhonchi Neuro: Present: Weakness, Grossly Intact. Absent: Numbness, Tingling, Resting Tremor, Essential Tremor Abdomen: Present: Soft, Other (Obese). Absent: Tender, Firm, Distended Skin: Present: Other (Bilateral lower extremities with compression dressings R/ T peripheral edema with weeping are dry and intact) Musculoskeletal: Present: Decreased Range of Motion Extremities: Present: No Cyanosis, Normal Upper Extr. Pulses (2-3+), Normal Lower Extr. Pulses (1-2+), Edema (BLE with 2+ pitting edema) Result/EKG - Labs CBC & BMP: 03/15/17 20:34 03/16/17 05:04 Lab Results: I have reviewed the past 24 hour labs Labs: Laboratory Results - last 24 hr 03/16/17 09:44 Total Creatine Kinase 70 CK-MB (CK-2) < 1.0 Troponin I 0.305 H - EKG EKG results: interpreted by me, no acute changes EKG shows: sinus rhythm IZulay Thomas, MD, personally performed the services described in this documentation, ascribed by Rupali Weiner RN in my presence, and it is both accurate and complete 417 .
[2017-03-17] MEDS: ENOXAPARIN 30 MG/0.3 ML SYRINGE SUBCUT SCH (23:09)
[2017-03-18 04:53] LABS: Basophils % 0.1 % (0.0-0.8); Eosinophils # 0.2 10*3/uL (0.0-0.87); Eosinophils % 2.5 % (0.00-10.9); Hemoglobin 10.3 GM/DL (14.0-18.0); Immature Granulocytes % 0.3 %; Immature Granulocytes Absolute 0.02 #; Lymphocytes # 1.4 10*3/uL (1.4-4.0); Lymphocytes % 17.8 % (21.2-54.2); Mean Corpuscular HGB Conc 32.2 GM/DL (32-36); Mean Corpuscular Hemoglobin 27 PG (27-34); Mean Corpuscular Volume 84.7 FL (87-102); Mean Platelet Volume 11.1 FL (9.6-12.0); Monocytes # 0.8 10*3/uL (0.11-0.8); Neutrophils # 5.5 10*3/uL (1.4-7.4); Neutrophils % 69.3 % (38.7-73.9); Platelet Count 152 T/CUMM (130-400); Red Blood Count 3.78 MC/CUMM (3.8-5.5); Red Cell Distribution Width 18.9 % (9.3-17.3); White Blood Count 7.9 T/CUMM (4-12)
[2017-03-18 05:37] LABS: Calcium 8.1 MG/DL (8.5-10.1); Magnesium 2.3 MG/DL (1.8-2.4); Osmolality,Calculated 289.4 MOS/KG (273-304); Potassium 4.4 MMOL/L (3.5-5.1)
[2017-03-18] MEDS: IPRATROPIUM 500 MCG/2.5 ML NEB RESP TX SCH ×4 (07:44→19:02)
--- NOTE | 2017-03-18 08:34 | Cardiology Progress Note ---
Assessment and Plan (1) Acute on chronic congestive heart failure Status: Acute Current Visit: Yes (2) Elevated troponin Status: Acute Current Visit: Yes (3) Obstructive sleep apnea Status: Acute Current Visit: Yes (4) Ischemic cardiomyopathy Status: Chronic Current Visit: Yes (5) Obesity Status: Chronic Current Visit: Yes Qualifiers: Obesity type: due to excess calories (6) Chronic renal insufficiency, stage III (moderate) Status: Acute Current Visit: No Cardiology - PN: Subj Interval history: Cardiology note 76-year-old man admitted with recurrent CHF. Ischemic cardiomyopathy EF 15% Has scrotal and leg edema. Blood pressure 130/70 O2 sat 95% room air Regular rhythm no gallop Decreased breath sounds few basilar crackles only Edematous legs Lab data White count 7.9 hemoglobin 10.3 hematocrit 32.0 Sodium 140 potassium 4.4 chloride 102 CO2 29 BUN 42 creatinine 2.50 Impression Recurrent systolic and diastolic heart failure Ischemic cardiomyopathy EF 15% range Status post non-Q-wave posterior infarction with CHF September 26, 2012 with OM stent status post PDA stent November 01, 2012 Abnormal but stable exercise cardiac stress test November 23, 2015 demonstrating inferior scar, no ischemia 30% and poor work capacity Obstructive sleep apnea Chronic renal failure Obesity Plan Continue Lasix 40 mg IV twice daily Continue Zaroxolyn 2.5 mg daily Duo nebs BMP in a.m. Increase hydralazine 50 mg 3 times daily Exam (Progress Note) - Constitutional Vitals: Period Temp Pulse Resp BP Sys/[place] Pulse Ox Last 24 Hr 97.2 F-98.2 F 57-88 12-20 99-130/55-68 91-98 Result/EKG - Labs CBC & BMP: 03/18/17 04:24 03/18/17 04:24 Labs: Laboratory Results - last 24 hr 03/17/17 03/18/17 03/18/17 21:20 04:24 04:24 WBC 7.9 RBC 3.78 L Hgb 10.3 L Hct 32.0 L MCV 84.7 L MCH 27 MCHC 32.2 RDW 18.9 H Plt Count 152 MPV 11.1 Neut % (Auto) 69.3 Lymph % (Auto) 17.8 L Branch % (Auto) 10.0 Eos % (Auto) 2.5 Baso % (Auto) 0.1 Neut # (Auto) 5.5 Lymph # (Auto) 1.4 Branch # (Auto) 0.8 Eos # (Auto) 0.2 Baso # (Auto) 0.0 Immature Gran % 0.3 Nucleated RBC % 0.0 Immature Gran # 0.02 Nucleated RBCs # 0.00 Sodium 140 Potassium 4.4 Chloride 102 Carbon Dioxide 29 Anion Gap 13.4 BUN 42 H Creatinine 2.50 H GFR Calculation 39 BUN/Creatinine Ratio 16.00 Glucose 90 POC Glucose 139 H Calculated Osmolality 289.4 Calcium 8.1 L Magnesium 2.3 03/18/17 07:55 WBC RBC Hgb Hct MCV MCH MCHC RDW Plt Count MPV Neut % (Auto) Lymph % (Auto) Branch % (Auto) Eos % (Auto) Baso % (Auto) Neut # (Auto) Lymph # (Auto) Branch # (Auto) Eos # (Auto) Baso # (Auto) Immature Gran % Nucleated RBC % Immature Gran # Nucleated RBCs # Sodium Potassium Chloride Carbon Dioxide Anion Gap BUN Creatinine GFR Calculation BUN/Creatinine Ratio Glucose POC Glucose 101 Calculated Osmolality Calcium Magnesium
[2017-03-18] MEDS: ACETAMINOPHEN 325 MG TABLET PO PRN (09:11)
[2017-03-18] MEDS: ISOSORBIDE DINITRATE 20 MG TABLET PO SCH ×3 (09:12→20:20)
[2017-03-18] MEDS: ASPIRIN CHEW 81 MG TABLET PO SCH (09:12)
[2017-03-18] MEDS: metOLazone 2.5 MG TABLET PO SCH (09:13)
[2017-03-18] MEDS: ATORVASTATIN 20 MG TABLET PO SCH (09:13)
[2017-03-18] MEDS: FUROSEMIDE 40 MG/4 ML VIAL IV SCH ×2 (09:14→15:21)
--- NOTE | 2017-03-18 10:26 | Hospitalist Progress Note ---
Assessment and Plan - Time spent with patient Time spent with patient: Less than 30 minutes (1) Acute on chronic congestive heart failure Status: Acute Assessment and plan: Patient has acute on chronic systolic and diastolic heart failure with ejection fraction of approximately 15%. He is responding clinically however we will continue IV diuresis with follow-up electrolytes renal function in the a.m. Cardiology is following and assisting with his medical therapy. Current Visit: Yes Qualifiers: Congestive heart failure type: combined Qualified Code(s): I50.43 - Acute on chronic combined systolic (congestive) and diastolic (congestive) heart failure (2) Essential hypertension Status: Chronic Assessment and plan: Currently stable. Continuing his current medical regimen. His hydralazine has been increased but Dr. Biswas. Current Visit: No (3) Dyslipidemia Status: Chronic Assessment and plan: Continue current medical regimen. Current Visit: No (4) Type 2 diabetes mellitus Status: Chronic Current Visit: No Qualifiers: Diabetes mellitus complication detail: with chronic kidney disease Chronic kidney disease stage: stage 3 (moderate) (5) Chronic renal insufficiency, stage III (moderate) Status: Chronic Assessment and plan: He has chronic kidney disease and creatinine remained stable. Continue current medical regimen and avoid any potential nephrotoxic insults or injury. Current Visit: No Hospitalist: Subjective Interval history: Chart has been reviewed and patient examined. He has no complaints of chest pain or shortness of breath. His best complaints or scrotal and leg edema. Exam - Constitutional Vitals: Period Temp Pulse Resp BP Sys/[place] Pulse Ox Last 24 Hr 97.2 F-98.2 F 57-88 12-20 99-130/55-80 91-100 General appearance: no acute distress - Head Head exam: Present: normocephalic, atraumatic - Eye Eye exam: Present: EOMI Pupils: Present: ABY - ENT ENT exam: Present: normal exam - Neck Neck exam: Present: normal inspection - Respiratory Respiratory exam: Present: clear to auscultation bilaterally - Cardiovascular Cardiovascular exam: Present: regular rate and rhythm. Absent: gallop - GI/Abdominal GI/Abdominal exam: Present: normal bowel sounds, soft. Absent: tenderness - Extremities Exam Extremities exam: Present: edema (Bilateral lower extremity pitting edema), other (Scrotal and penile edema noted) - Back Exam Back exam: Present: normal inspection - Neurological Exam Neurological exam: Present: alert, oriented X3, CN II-XII intact. Absent: motor sensory deficit - Psychiatric Psychiatric exam: Present: normal affect, normal mood. Absent: agitated - Skin Skin exam: Present: warm, dry Results - Labs CBC & BMP: 03/18/17 04:24 03/18/17 04:24 Lab Results: I have reviewed the past 24 hour labs
[2017-03-18] MEDS: CARVEDILOL 6.25 MG TABLET PO SCH ×2 (10:38→22:30)
[2017-03-18] MEDS ORDERED: DOCUSATE SODIUM 100 MG CAPSULE PO PRN (11:11)
[2017-03-18] MEDS: MAGNESIUM HYDROXIDE SUSP 30 ML UDCUP PO PRN (12:40)
[2017-03-18] MEDS: ENOXAPARIN 30 MG/0.3 ML SYRINGE SUBCUT SCH (21:19)
[2017-03-19 05:13] LABS: Basophils % 0.2 % (0.0-0.8); Eosinophils # 0.2 10*3/uL (0.0-0.87); Eosinophils % 2.2 % (0.00-10.9); Hematocrit 31.2 VOL% (42.0-52.0); Hemoglobin 10.3 GM/DL (14.0-18.0); Immature Granulocytes % 0.4 %; Immature Granulocytes Absolute 0.03 #; Lymphocytes # 1.4 10*3/uL (1.4-4.0); Lymphocytes % 17.2 % (21.2-54.2); Mean Corpuscular Hemoglobin 27 PG (27-34); Mean Corpuscular Volume 82.8 FL (87-102); Monocytes # 0.9 10*3/uL (0.11-0.8); Monocytes % 11.6 % (1.7-12.7); Neutrophils # 5.5 10*3/uL (1.4-7.4); Neutrophils % 68.4 % (38.7-73.9); Platelet Count 166 T/CUMM (130-400); Red Blood Count 3.77 MC/CUMM (3.8-5.5); Red Cell Distribution Width 18.6 % (9.3-17.3)
[2017-03-19 05:47] LABS: Calcium 8.3 MG/DL (8.5-10.1); Magnesium 2.3 MG/DL (1.8-2.4); Osmolality,Calculated 287.5 MOS/KG (273-304)
[2017-03-19] MEDS: ACETAMINOPHEN 325 MG TABLET PO PRN ×2 (06:26→17:38)
[2017-03-19] MEDS: IPRATROPIUM 500 MCG/2.5 ML NEB RESP TX SCH ×4 (07:59→19:10)
[2017-03-19] MEDS: ISOSORBIDE DINITRATE 20 MG TABLET PO SCH ×3 (08:50→21:13)
[2017-03-19] MEDS: ATORVASTATIN 20 MG TABLET PO SCH (08:50)
[2017-03-19] MEDS: ASPIRIN CHEW 81 MG TABLET PO SCH (08:50)
[2017-03-19] MEDS: metOLazone 2.5 MG TABLET PO SCH (08:51)
[2017-03-19] MEDS: MAGNESIUM HYDROXIDE SUSP 30 ML UDCUP PO PRN (08:51)
[2017-03-19] MEDS: FUROSEMIDE 40 MG/4 ML VIAL IV SCH ×2 (08:53→17:39)
--- NOTE | 2017-03-19 09:50 | Hospitalist Progress Note ---
Assessment and Plan - Time spent with patient Time spent with patient: Less than 30 minutes (1) Acute on chronic congestive heart failure Status: Acute Assessment and plan: 03/18/17: Patient has acute on chronic systolic and diastolic heart failure with ejection fraction of approximately 15%. He is responding clinically however we will continue IV diuresis with follow-up electrolytes renal function in the a.m. Cardiology is following and assisting with his medical therapy. 03/19/17: Patient continues to diurese and is symptomatically improved. We will continue current therapy for now, await further recommendations from cardiology. Follow-up electrolytes renal function in the a.m. Current Visit: Yes Qualifiers: Congestive heart failure type: combined Qualified Code(s): I50.43 - Acute on chronic combined systolic (congestive) and diastolic (congestive) heart failure (2) Essential hypertension Status: Chronic Assessment and plan: 03/18/17: Currently stable. Continuing his current medical regimen. His hydralazine has been increased but Dr. Biswas. 03/19/17: Blood pressures well controlled. Continue current regimen. Current Visit: No (3) Dyslipidemia Status: Chronic Assessment and plan: Continue current medical regimen. Current Visit: No (4) Type 2 diabetes mellitus Status: Chronic Assessment and plan: Blood sugars well controlled. Current Visit: No Qualifiers: Diabetes mellitus complication detail: with chronic kidney disease Chronic kidney disease stage: stage 3 (moderate) (5) Chronic renal insufficiency, stage III (moderate) Status: Chronic Assessment and plan: He has chronic kidney disease and creatinine remained stable. Continue current medical regimen and avoid any potential nephrotoxic insults or injury. 03/19/17: Creatinine slightly improved at 2.2 today. Continue current therapy and monitor. Current Visit: No Hospitalist: Subjective Interval history: Mr. Rangel is sitting up in a chair. He has no new complaints. He believes his swelling of his legs and his scrotum have improved. He did have some mild discomfort in the perineum earlier this morning. He denies any chest pain or shortness of breath. He is tolerating his diet without difficulty. Exam - Constitutional Vitals: Period Temp Pulse Resp BP Sys/[place] Pulse Ox Last 24 Hr 97.7 F-98.2 F 62-74 16-20 110-130/62-76 92-100 General appearance: no acute distress - Head Head exam: Present: normocephalic, atraumatic - Eye Eye exam: Present: EOMI - ENT ENT exam: Present: normal exam - Neck Neck exam: Present: normal inspection - Respiratory Respiratory exam: Present: clear to auscultation bilaterally. Absent: rales, rhonchi, wheezes - Cardiovascular Cardiovascular exam: Present: regular rate and rhythm. Absent: gallop - GI/Abdominal GI/Abdominal exam: Present: normal bowel sounds, soft. Absent: mass, tenderness - Extremities Exam Extremities exam: Present: edema (Bilateral lower extremity pitting edema), other (Scrotal and penile edema somewhat decreased from yesterday.). Absent: calf tenderness - Back Exam Back exam: Present: normal inspection - Neurological Exam Neurological exam: Present: alert, oriented X3, CN II-XII intact. Absent: motor sensory deficit - Psychiatric Psychiatric exam: Present: normal affect, normal mood. Absent: agitated, anxious - Skin Skin exam: Present: warm, dry. Absent: rash Results - Labs CBC & BMP: 03/19/17 04:52 03/19/17 04:52 Lab Results: I have reviewed the past 24 hour labs
--- NOTE | 2017-03-19 10:32 | Cardiology Progress Note ---
Assessment and Plan (1) Acute on chronic congestive heart failure Status: Acute Current Visit: Yes Qualifiers: Congestive heart failure type: combined Qualified Code(s): I50.43 - Acute on chronic combined systolic (congestive) and diastolic (congestive) heart failure (2) Elevated troponin Status: Acute Current Visit: Yes (3) Obstructive sleep apnea Status: Acute Current Visit: Yes (4) Ischemic cardiomyopathy Status: Chronic Current Visit: Yes (5) Obesity Status: Chronic Current Visit: Yes Qualifiers: Obesity type: due to excess calories (6) Chronic renal insufficiency, stage III (moderate) Status: Chronic Current Visit: No Cardiology - PN: Subj Interval history: Cardiology note 76-year-old man with recurrent systolic and diastolic heart failure Telemetry shows sinus rhythm rare PVC Blood pressure 126/78 O2 sat 98% on 2 L cannula Scrotal edema is slowly improving Regular rhythm no gallop Decreased breath sounds few rhonchi in the left base Lower extremity edema improved Lab data White count 8.0 hemoglobin 10.3 hematocrit 31.2 Sodium 139 potassium 4.0 chloride 100 CO2 31 BUN 43 creatinine down to 2.20 Magnesium 2.3 glucose 97 Impression Recurrent systolic and diastolic heart failure Ischemic cardiomyopathy EF 15% Status post non-Q-wave posterior infarction with CHF September 26, 2012 with OM stent Status post PDA stent November 01, 2012 Abnormal but stable exercise cardiac stress test November 23, 2015 demonstrating inferior scar, no ischemia, EF 30% and poor work capacity Obstructive sleep apnea Chronic renal failure Obesity QRS duration 116 ms Plan Continue Lasix 40 mg IV twice daily Continue Zaroxolyn 2.5 mg daily Duo nebs BMP in a.m. Continue hydralazine 50 mg 3 times daily and titrate further as BP permits Exam (Progress Note) - Constitutional Vitals: Period Temp Pulse Resp BP Sys/[place] Pulse Ox Last 24 Hr 97.7 F-98.2 F 62-74 16-20 110-130/62-76 92-100 Result/EKG - Labs CBC & BMP: 03/19/17 04:52 03/19/17 04:52 Labs: Laboratory Results - last 24 hr 03/18/17 03/18/17 03/18/17 11:57 16:52 19:36 WBC RBC Hgb Hct MCV MCH MCHC RDW Plt Count MPV Neut % (Auto) Lymph % (Auto) [place] % (Auto) Eos % (Auto) Baso % (Auto) Neut # (Auto) Lymph # (Auto) [place] # (Auto) Eos # (Auto) Baso # (Auto) Immature Gran % Nucleated RBC % Immature Gran # Nucleated RBCs # Sodium Potassium Chloride Carbon Dioxide Anion Gap BUN Creatinine GFR Calculation BUN/Creatinine Ratio Glucose POC Glucose 139 H 125 H 173 H Calculated Osmolality Calcium Magnesium 03/19/17 03/19/17 03/19/17 04:52 04:52 07:44 WBC 8.0 RBC 3.77 L Hgb 10.3 L Hct 31.2 L MCV 82.8 L MCH 27 MCHC 33.0 RDW 18.6 H Plt Count 166 MPV 11.0 Neut % (Auto) 68.4 Lymph % (Auto) 17.2 L [place] % (Auto) 11.6 Eos % (Auto) 2.2 Baso % (Auto) 0.2 Neut # (Auto) 5.5 Lymph # (Auto) 1.4 [place] # (Auto) 0.9 H Eos # (Auto) 0.2 Baso # (Auto) 0.0 Immature Gran % 0.4 Nucleated RBC % 0.0 Immature Gran # 0.03 Nucleated RBCs # 0.00 Sodium 139 Potassium 4.0 Chloride 100 Carbon Dioxide 31 Anion Gap 12.0 BUN 43 H Creatinine 2.20 H GFR Calculation 45 BUN/Creatinine Ratio 19.00 Glucose 97 POC Glucose 92 Calculated Osmolality 287.5 Calcium 8.3 L Magnesium 2.3
[2017-03-19] MEDS: CARVEDILOL 6.25 MG TABLET PO SCH ×2 (11:31→21:39)
[2017-03-19] MEDS: ENOXAPARIN 30 MG/0.3 ML SYRINGE SUBCUT SCH (21:14)
[2017-03-20 05:48] LABS: Basophils % 0.1 % (0.0-0.8); Eosinophils # 0.2 10*3/uL (0.0-0.87); Eosinophils % 1.7 % (0.00-10.9); Hematocrit 32.1 VOL% (42.0-52.0); Hemoglobin 10.6 GM/DL (14.0-18.0); Immature Granulocytes % 0.5 %; Immature Granulocytes Absolute 0.04 #; Lymphocytes # 1.4 10*3/uL (1.4-4.0); Lymphocytes % 16.3 % (21.2-54.2); Mean Corpuscular Hemoglobin 27 PG (27-34); Mean Corpuscular Volume 82.9 FL (87-102); Mean Platelet Volume 11.3 FL (9.6-12.0); Monocytes # 0.9 10*3/uL (0.11-0.8); Monocytes % 10.4 % (1.7-12.7); Neutrophils # 6.2 10*3/uL (1.4-7.4); Platelet Count 173 T/CUMM (130-400); Red Blood Count 3.87 MC/CUMM (3.8-5.5); Red Cell Distribution Width 18.6 % (9.3-17.3); White Blood Count 8.7 T/CUMM (4-12)
[2017-03-20 06:13] LABS: Calcium 8.3 MG/DL (8.5-10.1); Magnesium 2.2 MG/DL (1.8-2.4); Osmolality,Calculated 285.5 MOS/KG (273-304); Potassium 4.1 MMOL/L (3.5-5.1)
[2017-03-20] MEDS: IPRATROPIUM 500 MCG/2.5 ML NEB RESP TX SCH ×4 (07:50→19:01)
--- NOTE | 2017-03-20 08:33 | Hospitalist Progress Note ---
Assessment and Plan (1) Acute on chronic congestive heart failure Status: Acute Assessment and plan: increase lasix 80 mg IV every q 12 hours Current Visit: Yes Qualifiers: Congestive heart failure type: combined Qualified Code(s): I50.43 - Acute on chronic combined systolic (congestive) and diastolic (congestive) heart failure (2) Essential hypertension Status: Chronic Assessment and plan: controlled Current Visit: No (3) Type 2 diabetes mellitus Status: Chronic Assessment and plan: controlled Current Visit: No Qualifiers: Diabetes mellitus complication detail: with chronic kidney disease Chronic kidney disease stage: stage 3 (moderate) (4) COPD (chronic obstructive pulmonary disease) Status: Chronic Assessment and plan: stable Current Visit: No (5) Treatment-emergent central sleep apnea Status: Acute Assessment and plan: dr carmichael Current Visit: No (6) Chronic renal failure Status: Acute Assessment and plan: stable monitor Current Visit: Yes Hospitalist: Subjective Interval history: Patient is well-known to myself and our team. Patient has reoccurring admissions for noncompliance with medications. He has severe congestive heart failure and renal disease and has a poor social situation. He lives with his brother who does not care for him well. Exam - Constitutional Vitals: Period Temp Pulse Resp BP Sys/[place] Pulse Ox Last 24 Hr 97.3 F-98.9 F 66-82 16-20 103-133/58-76 95-99 Exam: Heart Rate-[RRR] Lungs-[diminished] GI-[+bs soft, NT] Ext-[1+ edema in legs and edema in face and around eye ] Neuro [Motor 5/5], [alert and oriented times 3] psych [normal mood and affect] General [no acute distress] Results - Labs CBC & BMP: 03/20/17 04:03 03/20/17 04:03 Lab Results: I have reviewed the past 24 hour labs Labs: bnp greater than 3000
[2017-03-20] MEDS: ASPIRIN CHEW 81 MG TABLET PO SCH (08:40)
[2017-03-20] MEDS: ISOSORBIDE DINITRATE 20 MG TABLET PO SCH ×3 (08:40→21:19)
[2017-03-20] MEDS: CARVEDILOL 6.25 MG TABLET PO SCH ×3 (08:40→22:21)
[2017-03-20] MEDS: metOLazone 2.5 MG TABLET PO SCH (08:40)
[2017-03-20] MEDS: ATORVASTATIN 20 MG TABLET PO SCH (08:41)
[2017-03-20] MEDS: FUROSEMIDE 40 MG/4 ML VIAL IV SCH ×3 (08:42→15:52)
[2017-03-20] MEDS: ACETAMINOPHEN 325 MG TABLET PO PRN (09:47)
--- NOTE | 2017-03-20 21:23 | Cardiology Progress Note ---
Stephanie Salazar April, RN, am scribing for, and in the presence of, Tino Vega MD 21 :22. Assessment and Plan (1) Acute on chronic congestive heart failure Status: Acute Assessment and plan: 76-year-old black male, ischemic cardiomyopathy, ejection fraction 15%, anasarca. Admitted to decompensated CHF, volume overload. No ACS. -Continue diuresis. The pulmonary congestion improved, still has bilateral anasarca. -Severe ICM. His most recent ischemic evaluation showed a no ischemia, but old disease. If he is not responding well to medical management, we may consider a viability study -He may be a candidate for ICD for primary prevention, once CHF improves Current Visit: Yes Qualifiers: Congestive heart failure type: combined Qualified Code(s): I50.43 - Acute on chronic combined systolic (congestive) and diastolic (congestive) heart failure (2) Lower extremity edema Status: Acute Current Visit: Yes (3) Obstructive sleep apnea Status: Chronic Current Visit: Yes (4) Ischemic cardiomyopathy Status: Chronic Current Visit: Yes (5) CAD (coronary artery disease) Status: Chronic Current Visit: Yes Qualifiers: Coronary Disease-Associated Artery/Lesion type: [place] artery [place] vs. transplanted heart: [place] heart Associated angina: without angina Qualified Code(s): I25.10 - Atherosclerotic heart disease of [place] coronary artery without angina pectoris Cardiology - PN: Subj Interval history: Clinic Lead: Dr. Biswas Mr. Rangel is a 76-year-old man with recurrent systolic and diastolic heart failure. He has history of ischemic cardiomyopathy with ejection fraction of 15 %, status post non-Q-wave posterior infarction August 2012 with stent to the OM, status post PDA stent in October 2012. He had abnormal but stable cardiac exercise stress test October 2015. He was admitted with CHF exacerbation short of breath. He acknowledges upon admission that he had not been taking his medicines as prescribed. Today he is seen resting in bed in no acute distress. He denies any chest pain and reports his breathing is improved. I's and O's are negative. Vital signs been stable with blood pressure this morning 116/70. O2 sat 98% on 2 L oxygen via nasal cannula. His creatinine is stable at 2.2, his BNP is down to 3042. His Lasix has been increased to 80 mg IV twice daily, he is also getting metolazone 2.5 mg p.o. daily. Exam (Progress Note) - Constitutional Vitals: Period Temp Pulse Resp BP Sys/[place] Pulse Ox Last 24 Hr 97.3 F-98.9 F 66-88 16-20 103-133/58-76 95-99 General appearance: no acute distress, morbidly obese - Head Head exam: Absent: abrasion, hematoma - Eye Eye exam: Absent: periorbital swelling, laceration to eyelids - Respiratory Respiratory exam: Present: decreased breath sounds, other (Oxygen via nasal cannula). Absent: accessory muscle use, chest wall tenderness - Cardiovascular Cardiovascular exam: Present: regular rate and rhythm - GI/Abdominal GI/Abdominal exam: Present: normal bowel sounds, soft. Absent: distended, tenderness - Extremities Exam Extremities exam: Present: edema, other (Dressings to bilateral lower extremities) - Neurological Exam Neurological exam: Present: alert, oriented X3 - Psychiatric Psychiatric exam: Present: normal affect, normal mood - Skin Skin exam: Present: warm, dry Result/EKG - Labs CBC & BMP: 03/20/17 04:03 03/20/17 04:03 Lab Results: I have reviewed the past 24 hour labs Labs: Laboratory Results - last 24 hr 03/19/17 03/19/17 03/20/17 11:50 16:36 04:00 WBC RBC Hgb Hct MCV MCH MCHC RDW Plt Count MPV Neut % (Auto) Lymph % (Auto) [place] % (Auto) Eos % (Auto) Baso % (Auto) Neut # (Auto) Lymph # (Auto) [place] # (Auto) Eos # (Auto) Baso # (Auto) Immature Gran % Nucleated RBC % Immature Gran # Nucleated RBCs # Sodium Potassium Chloride Carbon Dioxide Anion Gap BUN Creatinine GFR Calculation BUN/Creatinine Ratio Glucose POC Glucose 102 102 Calculated Osmolality Calcium Magnesium B-Natriuretic Peptide 3042 H 03/20/17 03/20/17 04:03 04:03 WBC 8.7 RBC 3.87 Hgb 10.6 L Hct 32.1 L MCV 82.9 L MCH 27 MCHC 33.0 RDW 18.6 H Plt Count 173 MPV 11.3 Neut % (Auto) 71.0 Lymph % (Auto) 16.3 L [place] % (Auto) 10.4 Eos % (Auto) 1.7 Baso % (Auto) 0.1 Neut # (Auto) 6.2 Lymph # (Auto) 1.4 [place] # (Auto) 0.9 H Eos # (Auto) 0.2 Baso # (Auto) 0.0 Immature Gran % 0.5 Nucleated RBC % 0.0 Immature Gran # 0.04 Nucleated RBCs # 0.00 Sodium 139 Potassium 4.1 Chloride 98 Carbon Dioxide 31 Anion Gap 14.1 BUN 41 H Creatinine 2.20 H GFR Calculation 45 BUN/Creatinine Ratio 18.00 Glucose 83 POC Glucose Calculated Osmolality 285.5 Calcium 8.3 L Magnesium 2.2 B-Natriuretic Peptide - EKG EKG results: interpreted by me EKG shows: sinus rhythm Silvia Salazar Attila, MD, personally performed the services described in this documentation, ascribed by Corin Brown RN in my presence, and it is both accurate and complete .
[2017-03-20] MEDS: ENOXAPARIN 30 MG/0.3 ML SYRINGE SUBCUT SCH (22:20)
[2017-03-21 06:11] LABS: Basophils % 0.3 % (0.0-0.8); Eosinophils # 0.2 10*3/uL (0.0-0.87); Eosinophils % 2.2 % (0.00-10.9); Hematocrit 31.3 VOL% (42.0-52.0); Hemoglobin 10.4 GM/DL (14.0-18.0); Immature Granulocytes % 0.3 %; Immature Granulocytes Absolute 0.02 #; Lymphocytes # 1.3 10*3/uL (1.4-4.0); Lymphocytes % 18.4 % (21.2-54.2); Mean Corpuscular HGB Conc 33.2 GM/DL (32-36); Mean Corpuscular Hemoglobin 27 PG (27-34); Mean Corpuscular Volume 81.9 FL (87-102); Mean Platelet Volume 10.8 FL (9.6-12.0); Monocytes # 0.9 10*3/uL (0.11-0.8); Monocytes % 12.7 % (1.7-12.7); Neutrophils # 4.8 10*3/uL (1.4-7.4); Neutrophils % 66.1 % (38.7-73.9); Platelet Count 178 T/CUMM (130-400); Red Blood Count 3.82 MC/CUMM (3.8-5.5); Red Cell Distribution Width 18.6 % (9.3-17.3); White Blood Count 7.2 T/CUMM (4-12)
[2017-03-21 06:51] LABS: Calcium 8.7 MG/DL (8.5-10.1); Magnesium 2.2 MG/DL (1.8-2.4); Potassium 3.8 MMOL/L (3.5-5.1)
[2017-03-21] MEDS: IPRATROPIUM 500 MCG/2.5 ML NEB RESP TX SCH ×4 (07:58→19:49)
[2017-03-21] MEDS: ATORVASTATIN 20 MG TABLET PO SCH (09:01)
[2017-03-21] MEDS: ISOSORBIDE DINITRATE 20 MG TABLET PO SCH ×3 (09:01→22:34)
[2017-03-21] MEDS: metOLazone 2.5 MG TABLET PO SCH (09:02)
[2017-03-21] MEDS: ASPIRIN CHEW 81 MG TABLET PO SCH (09:02)
[2017-03-21] MEDS: FUROSEMIDE 40 MG/4 ML VIAL IV SCH ×2 (09:03→16:00)
--- NOTE | 2017-03-21 09:34 | Hospitalist Progress Note ---
Assessment and Plan (1) Acute on chronic congestive heart failure Status: Acute Assessment and plan: cont lasix 80 mg IV every q 12 hours Current Visit: Yes Qualifiers: Congestive heart failure type: combined Qualified Code(s): I50.43 - Acute on chronic combined systolic (congestive) and diastolic (congestive) heart failure (2) Essential hypertension Status: Chronic Assessment and plan: controlled but monitor for hypotension Current Visit: No (3) Type 2 diabetes mellitus Status: Chronic Assessment and plan: controlled suspect that he may no longer be a diabetic will check a hemoglobin A1c Current Visit: No Qualifiers: Diabetes mellitus complication detail: with chronic kidney disease Chronic kidney disease stage: stage 3 (moderate) (4) COPD (chronic obstructive pulmonary disease) Status: Chronic Assessment and plan: stable Current Visit: No (5) Treatment-emergent central sleep apnea Status: Acute Assessment and plan: dr carmichael Current Visit: No (6) Chronic renal failure Status: Acute Assessment and plan: stable monitor Current Visit: Yes Hospitalist: Subjective Interval history: Patient looks less swollen today. He had bad anasarca. I had doubled his Lasix and he is urinating much better. Exam - Constitutional Vitals: Period Temp Pulse Resp BP Sys/[place] Pulse Ox Last 24 Hr 97.8 F-99.6 F 68-86 16-20 94-119/55-72 90-98 Exam: Heart Rate-[RRR] Lungs-clear GI-[+bs soft, NT] Ext-[anasarca improved Neuro [Motor 5/5], [alert and oriented times 3] psych [normal mood and affect] General [no acute distress] Results - Labs CBC & BMP: 03/21/17 05:40 03/21/17 05:40 Lab Results: I have reviewed the past 24 hour labs
[2017-03-21] MEDS ORDERED: POTASSIUM CHLORIDE 20 MEQ TABLET PO SCH ×2 (10:00)
[2017-03-21] MEDS: CARVEDILOL 6.25 MG TABLET PO SCH ×2 (11:04→23:48)
--- NOTE | 2017-03-21 22:08 | Cardiology Progress Note ---
Stephanie Salazar April RN, am scribing for, and in the presence of, Tino Vega MD 22 :08. Assessment and Plan (1) Acute on chronic congestive heart failure Status: Acute Assessment and plan: 76-year-old black male, ischemic cardiomyopathy, ejection fraction 15%, anasarca. Admitted to decompensated CHF, volume overload. No ACS. -Continue diuresis. The pulmonary congestion improved, still has bilateral anasarca. Diuresing well. Monitor and replete lytes -Severe ICM. His most recent ischemic evaluation showed no ischemia, but old disease. If he is not responding well to medical management, we may consider a viability study -He may be a candidate for ICD for primary prevention, once CHF improves. Fu with cardiology in 2 weeks Current Visit: Yes Qualifiers: Congestive heart failure type: combined Qualified Code(s): I50.43 - Acute on chronic combined systolic (congestive) and diastolic (congestive) heart failure (2) Lower extremity edema Status: Acute Current Visit: Yes (3) Obstructive sleep apnea Status: Chronic Current Visit: Yes (4) Ischemic cardiomyopathy Status: Chronic Current Visit: Yes (5) CAD (coronary artery disease) Status: Chronic Current Visit: Yes Qualifiers: Coronary Disease-Associated Artery/Lesion type: [place] artery [place] vs. transplanted heart: [place] heart Associated angina: without angina Qualified Code(s): I25.10 - Atherosclerotic heart disease of [place] coronary artery without angina pectoris Cardiology - PN: Subj Interval history: Spanish Translator: Dr. Biswas Mr. Rangel was seen sitting up in bed in no acute distress. He denies any chest pain, palpitations, or dizziness and reports his breathing has improved. Oxygen is in use via nasal cannula. His Lasix was increased yesterday and he reports he had more urine output since then. His creatinine is down to 2.1, this is lower than it was on admission. threat monitoring analyst currently shows sinus rhythm with PVCs, heart rates in the 70s. Exam (Progress Note) - Constitutional Vitals: Period Temp Pulse Resp BP Sys/[place] Pulse Ox Last 24 Hr 97.8 F-99.6 F 65-86 16-20 94-121/55-72 91-99 General appearance: no acute distress, morbidly obese - Head Head exam: Absent: abrasion, hematoma - Eye Eye exam: Absent: periorbital swelling, laceration to eyelids - Respiratory Respiratory exam: Present: decreased breath sounds, other (Oxygen via nasal cannula). Absent: accessory muscle use, chest wall tenderness - Cardiovascular Cardiovascular exam: Present: regular rate and rhythm - GI/Abdominal GI/Abdominal exam: Present: normal bowel sounds, soft. Absent: distended, tenderness - Extremities Exam Extremities exam: Present: edema, other (Dressings to bilateral lower extremities) - Neurological Exam Neurological exam: Present: alert, oriented X3 - Psychiatric Psychiatric exam: Present: normal affect, normal mood - Skin Skin exam: Present: warm, dry Result/EKG - Labs CBC & BMP: 03/21/17 05:40 03/21/17 05:40 Lab Results: I have reviewed the past 24 hour labs Labs: Laboratory Results - last 24 hr 03/21/17 03/21/17 03/21/17 05:40 05:40 10:02 WBC 7.2 RBC 3.82 Hgb 10.4 L Hct 31.3 L MCV 81.9 L MCH 27 MCHC 33.2 RDW 18.6 H Plt Count 178 MPV 10.8 Neut % (Auto) 66.1 Lymph % (Auto) 18.4 L [place] % (Auto) 12.7 Eos % (Auto) 2.2 Baso % (Auto) 0.3 Neut # (Auto) 4.8 Lymph # (Auto) 1.3 L [place] # (Auto) 0.9 H Eos # (Auto) 0.2 Baso # (Auto) 0.0 Immature Gran % 0.3 Nucleated RBC % 0.0 Immature Gran # 0.02 Nucleated RBCs # 0.00 Sodium 136 Potassium 3.8 Chloride 94 L Carbon Dioxide 33 H Anion Gap 12.8 BUN 39 H Creatinine 2.10 H GFR Calculation 48 BUN/Creatinine Ratio 18.00 Glucose 84 POC Glucose Hemoglobin A1c 7.5 H Calculated Osmolality 279.0 Calcium 8.7 Magnesium 2.2 03/21/17 11:15 WBC RBC Hgb Hct MCV MCH MCHC RDW Plt Count MPV Neut % (Auto) Lymph % (Auto) [place] % (Auto) Eos % (Auto) Baso % (Auto) Neut # (Auto) Lymph # (Auto) [place] # (Auto) Eos # (Auto) Baso # (Auto) Immature Gran % Nucleated RBC % Immature Gran # Nucleated RBCs # Sodium Potassium Chloride Carbon Dioxide Anion Gap BUN Creatinine GFR Calculation BUN/Creatinine Ratio Glucose POC Glucose 136 H Hemoglobin A1c Calculated Osmolality Calcium Magnesium - EKG EKG results: interpreted by me EKG shows: sinus rhythm (With PVCs) Silvia Salazar Attila, MD, personally performed the services described in this documentation, ascribed by Corin Brown RN in my presence, and it is both accurate and complete .
[2017-03-21] MEDS: ENOXAPARIN 30 MG/0.3 ML SYRINGE SUBCUT SCH (22:32)
[2017-03-22 06:12] LABS: Basophils % 0.3 % (0.0-0.8); Eosinophils # 0.1 10*3/uL (0.0-0.87); Eosinophils % 1.7 % (0.00-10.9); Hematocrit 31.7 VOL% (42.0-52.0); Hemoglobin 10.7 GM/DL (14.0-18.0); Immature Granulocytes % 0.5 %; Immature Granulocytes Absolute 0.03 #; Lymphocytes # 1.3 10*3/uL (1.4-4.0); Lymphocytes % 20.3 % (21.2-54.2); Mean Corpuscular HGB Conc 33.8 GM/DL (32-36); Mean Corpuscular Hemoglobin 28 PG (27-34); Mean Corpuscular Volume 81.5 FL (87-102); Mean Platelet Volume 11.6 FL (9.6-12.0); Monocytes # 0.9 10*3/uL (0.11-0.8); Monocytes % 13.4 % (1.7-12.7); Neutrophils # 4.1 10*3/uL (1.4-7.4); Neutrophils % 63.8 % (38.7-73.9); Platelet Count 184 T/CUMM (130-400); Red Blood Count 3.89 MC/CUMM (3.8-5.5); Red Cell Distribution Width 18.5 % (9.3-17.3); White Blood Count 6.4 T/CUMM (4-12)
[2017-03-22 06:48] LABS: Magnesium 2.1 MG/DL (1.8-2.4); Potassium 3.9 MMOL/L (3.5-5.1)
[2017-03-22] MEDS: IPRATROPIUM 500 MCG/2.5 ML NEB RESP TX SCH ×2 (06:55→11:50)
[2017-03-22] MEDS ORDERED: POTASSIUM CHLORIDE 10 MEQ TABLET PO SCH (09:00)
[2017-03-22] MEDS: ASPIRIN CHEW 81 MG TABLET PO SCH (09:58)
[2017-03-22] MEDS: CARVEDILOL 6.25 MG TABLET PO SCH (09:58)
[2017-03-22] MEDS: ATORVASTATIN 20 MG TABLET PO SCH (09:58)
[2017-03-22] MEDS: ISOSORBIDE DINITRATE 20 MG TABLET PO SCH ×2 (09:58→15:12)
[2017-03-22] MEDS: FUROSEMIDE 40 MG/4 ML VIAL IV SCH (09:59)
[2017-03-22] MEDS: metOLazone 2.5 MG TABLET PO SCH (09:59)
--- NOTE | 2017-03-22 10:26 | Discharge Summary ---
<AngelicaKenn - Last Filed: 03/22/17 11:09> Hospital Course - Hospital Course Hospital Course: Mr. Rangel is a 76-year-old -[place] male who was admitted on 03/15/2017 through the [facility] for symptomatic congestive heart failure. Chest x-ray revealed no acute cardiopulmonary disease. He was found to have recurrent systolic and diastolic heart failure. Previous echocardiagram noted ischemic cardiomyopathy with an EF of 10-15%. BNP was found to be 4014. On admission, the patient's Zaroxolyn was continued and IV Lasix 40 mg twice daily was ordered. Patient was also started on duo nebs, hydralazine 25 mg 3 times daily and Coreg 6.25 mg twice daily. The remainder of the patient's hospital course was relatively uncomplicated. Patient's diabetes seems to be well controlled, and he was thought to no longer be a diabetic. However hemoglobin A1c performed on 03/21/2017 was 7.5. Essential hypertension was managed with the patient's home meds along with therapeutic assistance by cardiology. Per Dr. Vega, cardiology, patient may be a candidate for ICD for primary prevention once CHF has improved. At this time the patient has reached maximum benefit from hospitalization and is stable for discharge. Creatinine level on discharge is 2.00, which is baseline for the patient. Patient will need to follow-up with Dr. Biswas in 2 weeks. - Time spent with patient Time with patient DS: Greater than 30 minutes Diagnosis - Discharge Diagnosis (1) CHF (congestive heart failure) Status: Chronic (2) Essential hypertension Status: Chronic (3) Elevated troponin I level Status: Acute (4) Peripheral edema Status: Chronic (5) CKD (chronic kidney disease) stage 3, GFR 30-59 ml/min Status: Chronic (6) Weight gain Status: Acute Specialty Discharge - Follow Up or Referrals Follow up with: dr fiorella [Other] - 2 Weeks Josemanuel Biswas MD [Physician] - 04/05/17 3:10 pm Discharge Plan - Discharge Data Disposition: Home Health Service - Discharge Medications New Albuterol Neb [Proventil Neb] 2.5 mg RESP TX TID #90 vial Potassium Chloride Cap/Tab [K Dur] 10 meq PO DAILY #30 tablet Skin Healing Oint (Aquaphor) [Aquaphor] 1 applic TOP PRN PRN #0 applic PRN Reason: Dry Skin Continue Atorvastatin [Lipitor] 10 mg PO QAM Tiotropium Inhalation [Spiriva Handihaler] 18 mcg INH QAM Aspirin Chew Tab 81 mg PO QAM Albuterol Sulfate [Proair HFA] 2 puffs INH QID PRN PRN Reason: Shortness Of Breath/Wheezing Isosorbide Dinitrate [Isordil] 20 mg PO TID #90 tablet Carvedilol [Coreg] 6.25 mg PO Q12H #60 tablet metOLazone [Zaroxolyn] 2.5 mg PO DAILY #30 tablet Changed Furosemide Tab [Lasix Tab] 80 mg PO BID DIURETIC #120 tablet hydrALAZINE TAB [Apresoline Tab] 50 mg PO TID #180 tablet - Follow Up or Referral Follow Up: dr fiorella [Other] - 2 Weeks Josemanuel Biswas MD [Physician] - 04/05/17 3:10 pm - Forms/Instructions Instructions: Coronary Artery Disease (DC) Exam - Constitutional Vitals: Period Temp Pulse Resp BP Sys/[place] Pulse Ox Last 24 Hr 97.6 F-99.1 F 65-79 16-20 116-134/66-86 91-99 Discharge Results Procedures and tests throughout hospitalization: Pending Orders 03/23/17 04:00 BMP w/ Mg [Basic Metabolic Panel w/Mg] IN AM CBC [Comp Blood Count Auto Diff] IN AM 03/24/17 04:00 BMP w/ Mg [Basic Metabolic Panel w/Mg] IN AM CBC [Comp Blood Count Auto Diff] IN AM Labs on day of discharge: Labs from last 24 hours 03/22/17 03/22/17 03/22/17 08:36 04:03 04:03 WBC 6.4 RBC 3.89 Hgb 10.7 L Hct 31.7 L MCV 81.5 L MCH 28 MCHC 33.8 RDW 18.5 H Plt Count 184 MPV 11.6 Neut % (Auto) 63.8 Lymph % (Auto) 20.3 L [place] % (Auto) 13.4 H Eos % (Auto) 1.7 Baso % (Auto) 0.3 Neut # (Auto) 4.1 Lymph # (Auto) 1.3 L [place] # (Auto) 0.9 H Eos # (Auto) 0.1 Baso # (Auto) 0.0 Immature Gran % 0.5 Nucleated RBC % 0.0 Immature Gran # 0.03 Nucleated RBCs # 0.00 Sodium 136 Potassium 3.9 Chloride 92 L Carbon Dioxide 32 Anion Gap 15.9 H BUN 37 H Creatinine 2.00 H GFR Calculation 50 BUN/Creatinine Ratio 18.00 Glucose 80 POC Glucose 92 Calculated Osmolality 279.0 Calcium 9.0 Magnesium 2.1 03/21/17 11:15 WBC RBC Hgb Hct MCV MCH MCHC RDW Plt Count MPV Neut % (Auto) Lymph % (Auto) [place] % (Auto) Eos % (Auto) Baso % (Auto) Neut # (Auto) Lymph # (Auto) [place] # (Auto) Eos # (Auto) Baso # (Auto) Immature Gran % Nucleated RBC % Immature Gran # Nucleated RBCs # Sodium Potassium Chloride Carbon Dioxide Anion Gap BUN Creatinine GFR Calculation BUN/Creatinine Ratio Glucose POC Glucose 136 H Calculated Osmolality Calcium Magnesium DS: Provider Date of admission: 03/15/17 21:49 Primary care physician: . No PCP Attending physician on admission: Arnel Wayne MD Consults: 03/20/17 08:34 Consult to Sleep Center [CONS] Routine Reason for Sleep Center: Sleep Center Physician Consult Comment: central sleep apnea 03/22/17 10:32 Consult to Case Mgmt/Social Srvs [CONS] Routine Reason for Case Mgmt/Social Srvs: Home Health Consult Comment: nurse for meds, pt Discharging clinician: Kenn HIGUERA Expected date of discharge: 03/22/17 <Sherry Krueger - Last Filed: 03/22/17 16:35> Hospital Course - Hospital Course Hospital Course: patient seen and examined. Hospital course reviewed and edited. He has a history of noncompliance with medications and he has chronic renal failure. He cannot take an merry or arb due to renal failure. His blood pressure is well controlled. He will be discharged on lasix 80 mg po bid with zaroxlyn 2.5 mg daily. He is stable for discharge. Diagnosis - Discharge Diagnosis (1) Acute on chronic congestive heart failure Status: Acute (2) Essential hypertension Status: Chronic (3) Type 2 diabetes mellitus Status: Chronic (4) COPD (chronic obstructive pulmonary disease) Status: Chronic (5) Treatment-emergent central sleep apnea Status: Acute (6) Chronic renal failure Status: Acute Discharge Plan - Discharge Data Condition at Discharge: Stable Discharge Diet: diabetic diet Activity: resume usual activities as tolerated, wear oxygen at all times Hygiene: no restrictions Weight Bearing at Discharge: full weight bearing Exam - Constitutional General appearance: no acute distress, morbidly obese - Respiratory Respiratory exam: Present: clear to auscultation bilaterally. Absent: rhonchi, wheezes - Cardiovascular Cardiovascular exam: Present: regular rate and rhythm. Absent: systolic murmur - GI/Abdominal GI/Abdominal exam: Present: normal bowel sounds, soft. Absent: tenderness - Extremities Exam Extremities exam: Present: edema - Neurological Exam Neurological exam: Present: alert, oriented X3 - Psychiatric Psychiatric exam: Present: normal affect, normal mood
[2017-03-22 12:18] VITALS: BP 115/65
== END 2017-03-22 15:35 | disposition home health service (06) | DRG 291 ==
LOC: N.ED 19:06 → SUATTDRO 21:49 → N.EDINP 21:49 → N.TELEN 22:56
PROVIDERS: ADMIT Family Medicine; ATTEND Internal Medicine

== ENCOUNTER 2017-10-06 17:10 | Inpatient (IN) ==
[2017-10-06] MEDS ORDERED: FUROSEMIDE 100 MG/10 ML VIAL IV STA (17:48)
[2017-10-06] MEDS ORDERED: FUROSEMIDE 40 MG/4 ML VIAL ONE (17:51)
[2017-10-06 18:03] LABS: Basophils % 0.1 % (0.0-0.8); Eosinophils % 0.1 % (0.00-10.9); Hematocrit 37.7 VOL% (42.0-52.0); Immature Granulocytes % 0.5 %; Immature Granulocytes Absolute 0.06 #; Lymphocytes % 8.5 % (21.2-54.2); Mean Corpuscular HGB Conc 31.8 GM/DL (32-36); Mean Corpuscular Hemoglobin 26 PG (27-34); Mean Corpuscular Volume 81.3 FL (87-102); Mean Platelet Volume 11.3 FL (9.6-12.0); Monocytes % 8.6 % (1.7-12.7); NRBC # 0.18 10*3/uL; Neutrophils # 9.6 10*3/uL (1.4-7.4); Neutrophils % 82.2 % (38.7-73.9); Platelet Count 159 T/CUMM (130-400); Red Blood Count 4.64 MC/CUMM (3.8-5.5); Red Cell Distribution Width 19.8 % (9.3-17.3); White Blood Count 11.6 T/CUMM (4-12)
[2017-10-06 18:22] LABS: Albumin 3.4 G/DL (3.4-5.0); Calcium 8.9 MG/DL (8.5-10.1); Osmolality,Calculated 311.4 MOS/KG (273-304); Total Protein 7.8 G/DL (6.4-8.3)
[2017-10-06 18:41] LABS: Potassium 6.3 MMOL/L (3.5-5.1)
[2017-10-06] MEDS ORDERED: ONDANSETRON 4 MG/2 ML VIAL IV PRN (20:35)
[2017-10-06] MEDS ORDERED: ZALEPLON 5 MG CAPSULE PO PRN (20:35)
[2017-10-06 20:45] LABS: INR 1.7; PT Patient Result 18.1 SECS; Partial Thromboplastin Time 32.7 SECS (0-40)
[2017-10-06] MEDS ORDERED: SODIUM POLYSTYRENE SULFATE 15 GM/60 ML BOTTLE PO ONE (20:52)
[2017-10-06] MEDS ORDERED: DEXTROSE 50% 25 GM/50 ML VIAL IV PRN (20:58)
[2017-10-06] MEDS ORDERED: GLUCAGON 1 MG VIAL IM PRN (20:58)
[2017-10-06] MEDS: CARVEDILOL 6.25 MG TABLET PO SCH (22:05)
[2017-10-06] MEDS: ENOXAPARIN 30 MG/0.3 ML SYRINGE SUBCUT SCH (22:05)
[2017-10-06 23:21] LABS: ABG Base Excess -6.8 MMOL/L (-2.5-2.5); ABG HCO3 18.8 MMOL/L (20-26); ABG Oxygen Saturation 93.2 % (95-100); ABG PCO2 29.2 MM HG (35-48); ABG PH 7.379 (7.35-7.45); ABG PO2 73.3 MM HG (80-95); ABG TCO2 15.4 MMOL/L (23-27)
[2017-10-07 07:00] LABS: Basophils % 0.1 % (0.0-0.8); Eosinophils % 0.1 % (0.00-10.9); Hematocrit 35.7 VOL% (42.0-52.0); Hemoglobin 11.8 GM/DL (14.0-18.0); Immature Granulocytes % 0.4 %; Immature Granulocytes Absolute 0.04 #; Lymphocytes # 1.3 10*3/uL (1.4-4.0); Lymphocytes % 13.1 % (21.2-54.2); Mean Corpuscular HGB Conc 33.1 GM/DL (32-36); Mean Corpuscular Hemoglobin 26 PG (27-34); Mean Platelet Volume 12.6 FL (9.6-12.0); Monocytes % 9.7 % (1.7-12.7); NRBC # 0.18 10*3/uL; Neutrophils # 7.9 10*3/uL (1.4-7.4); Neutrophils % 76.6 % (38.7-73.9); Platelet Count 160 T/CUMM (130-400); Red Blood Count 4.52 MC/CUMM (3.8-5.5); Red Cell Distribution Width 19.1 % (9.3-17.3); White Blood Count 10.2 T/CUMM (4-12)
[2017-10-07 07:29] LABS: Albumin 3.1 G/DL (3.4-5.0); Bilirubin,Total 8.7 MG/DL (0.2-1.0); Calcium 9.1 MG/DL (8.5-10.1); Magnesium 2.7 MG/DL (1.8-2.4); Osmolality,Calculated 313.3 MOS/KG (273-304); Potassium 5.5 MMOL/L (3.5-5.1); Total Protein 7.7 G/DL (6.4-8.3)
[2017-10-07 07:47] LABS: Free T4 (Free Thyroxine) 1.28 NG/DL (0.76-1.46); Thyroid Stimulating Hormone 9.28 uIU/ml (0.358-3.74)
[2017-10-07] MEDS ORDERED: FUROSEMIDE 40 MG/4 ML VIAL IV SCH (08:00)
[2017-10-07] MEDS ORDERED: SODIUM POLYSTYRENE SULFATE 15 GM/60 ML BOTTLE PO ONE (08:18)
[2017-10-07] MEDS: CARVEDILOL 6.25 MG TABLET PO SCH ×2 (09:34→21:24)
[2017-10-07] MEDS: ASPIRIN EC 81 MG TABLET PO SCH (09:34)
[2017-10-07] MEDS: INSULIN LISPRO 100 UNIT/ML SUBCUT SCH ×2 (09:44→18:15)
[2017-10-07] MEDS: FUROSEMIDE 40 MG/4 ML VIAL IV SCH (15:42)
[2017-10-07] MEDS: ENOXAPARIN 30 MG/0.3 ML SYRINGE SUBCUT SCH (21:24)
[2017-10-08 03:22] LABS: Osmolality,Calculated 308.7 MOS/KG (273-304); Potassium 4.7 MMOL/L (3.5-5.1)
[2017-10-08 03:51] LABS: Basophils % 0.1 % (0.0-0.8); Eosinophils % 0.4 % (0.00-10.9); Hematocrit 34.5 VOL% (42.0-52.0); Hemoglobin 11.2 GM/DL (14.0-18.0); Immature Granulocytes % 0.6 %; Immature Granulocytes Absolute 0.06 #; Lymphocytes # 0.9 10*3/uL (1.4-4.0); Lymphocytes % 9.1 % (21.2-54.2); Mean Corpuscular HGB Conc 32.5 GM/DL (32-36); Mean Corpuscular Hemoglobin 26 PG (27-34); Mean Corpuscular Volume 79.7 FL (87-102); Mean Platelet Volume 12.8 FL (9.6-12.0); Monocytes # 0.9 10*3/uL (0.11-0.8); Monocytes % 8.8 % (1.7-12.7); NRBC # 0.18 10*3/uL; Neutrophils # 8.1 10*3/uL (1.4-7.4); Platelet Count 160 T/CUMM (130-400); Red Blood Count 4.33 MC/CUMM (3.8-5.5); Red Cell Distribution Width 19.9 % (9.3-17.3)
[2017-10-08] MEDS: LEVOTHYROXINE 50 MCG TABLET PO SCH (06:12)
[2017-10-08] MEDS: INSULIN LISPRO 100 UNIT/ML SUBCUT SCH ×2 (09:13→17:01)
[2017-10-08] MEDS: CARVEDILOL 6.25 MG TABLET PO SCH ×2 (09:20→20:40)
[2017-10-08] MEDS: ASPIRIN EC 81 MG TABLET PO SCH (09:20)
[2017-10-08] MEDS: FUROSEMIDE 40 MG/4 ML VIAL IV SCH ×2 (09:20→16:09)
[2017-10-08] MEDS ORDERED: ZINC OXIDE PASTE 113 GM TUBE TOP PRN ×2 (14:41→15:00)
[2017-10-08] MEDS: ENOXAPARIN 30 MG/0.3 ML SYRINGE SUBCUT SCH (20:41)
[2017-10-09] MEDS: LEVOTHYROXINE 50 MCG TABLET PO SCH (06:43)
[2017-10-09 07:01] LABS: Basophils % 0.1 % (0.0-0.8); Eosinophils # 0.1 10*3/uL (0.0-0.87); Eosinophils % 0.6 % (0.00-10.9); Hematocrit 32.2 VOL% (42.0-52.0); Hemoglobin 10.7 GM/DL (14.0-18.0); Immature Granulocytes % 0.5 %; Immature Granulocytes Absolute 0.05 #; Lymphocytes # 0.9 10*3/uL (1.4-4.0); Lymphocytes % 9.1 % (21.2-54.2); Mean Corpuscular HGB Conc 33.2 GM/DL (32-36); Mean Corpuscular Hemoglobin 26 PG (27-34); Mean Corpuscular Volume 78.3 FL (87-102); Mean Platelet Volume 11.3 FL (9.6-12.0); Monocytes # 0.9 10*3/uL (0.11-0.8); Monocytes % 9.3 % (1.7-12.7); NRBC # 0.06 10*3/uL; Neutrophils # 7.6 10*3/uL (1.4-7.4); Neutrophils % 80.4 % (38.7-73.9); Platelet Count 127 T/CUMM (130-400); Red Blood Count 4.11 MC/CUMM (3.8-5.5); White Blood Count 9.5 T/CUMM (4-12)
[2017-10-09 07:40] LABS: Bilirubin,Total 7.6 MG/DL (0.2-1.0); Calcium 8.1 MG/DL (8.5-10.1)
[2017-10-09 07:41] LABS: Albumin 2.9 G/DL (3.4-5.0); Bilirubin,Direct 5.5 MG/DL (0.0-0.20); Bilirubin,Indirect 2.1 MG/DL (0.0-1.0); Potassium 4.1 MMOL/L (3.5-5.1); Total Protein 6.9 G/DL (6.4-8.3)
[2017-10-09] MEDS: INSULIN LISPRO 100 UNIT/ML SUBCUT SCH ×2 (09:07→16:57)
[2017-10-09] MEDS: FUROSEMIDE 40 MG/4 ML VIAL IV SCH ×2 (09:46→15:36)
[2017-10-09 10:09] LABS: Neutrophils,Peritoneal Fluid 32 %
[2017-10-09 10:11] LABS: RBC,Peritoneal Fluid 2494 T/CUMM
[2017-10-09] MEDS: ASPIRIN EC 81 MG TABLET PO SCH (10:37)
[2017-10-09] MEDS: CARVEDILOL 6.25 MG TABLET PO SCH ×2 (10:37→21:50)
[2017-10-09] MEDS: VANCOMYCIN INJ 1,750 MG in SODIUM CHLORIDE 0.9% 500 ML IV SCH (12:38)
[2017-10-09] MEDS: BACITRACIN OINT 0.9 GM PACK TOP SCH (15:36)
[2017-10-09] MEDS: ENOXAPARIN 30 MG/0.3 ML SYRINGE SUBCUT SCH ×2 (21:00→21:50)
[2017-10-10 06:33] LABS: Basophils % 0.1 % (0.0-0.8); Eosinophils % 0.4 % (0.00-10.9); Hemoglobin 10.7 GM/DL (14.0-18.0); Immature Granulocytes % 0.5 %; Immature Granulocytes Absolute 0.04 #; Lymphocytes # 0.9 10*3/uL (1.4-4.0); Lymphocytes % 10.1 % (21.2-54.2); Mean Corpuscular HGB Conc 32.4 GM/DL (32-36); Mean Corpuscular Hemoglobin 26 PG (27-34); Mean Corpuscular Volume 79.3 FL (87-102); Mean Platelet Volume 12.1 FL (9.6-12.0); Monocytes # 1.1 10*3/uL (0.11-0.8); NRBC # 0.05 10*3/uL; Neutrophils # 6.5 10*3/uL (1.4-7.4); Neutrophils % 75.9 % (38.7-73.9); Platelet Count 137 T/CUMM (130-400); Red Blood Count 4.16 MC/CUMM (3.8-5.5); White Blood Count 8.5 T/CUMM (4-12)
[2017-10-10 07:07] LABS: Albumin 2.8 G/DL (3.4-5.0); Bilirubin,Total 6.9 MG/DL (0.2-1.0); Calcium 7.8 MG/DL (8.5-10.1); Total Protein 6.8 G/DL (6.4-8.3)
[2017-10-10] MEDS: ENOXAPARIN 30 MG/0.3 ML SYRINGE SUBCUT SCH (09:25)
[2017-10-10] MEDS: FUROSEMIDE 40 MG/4 ML VIAL IV SCH ×2 (09:25→17:29)
[2017-10-10] MEDS: BACITRACIN OINT 0.9 GM PACK TOP SCH (09:26)
[2017-10-10] MEDS: ASPIRIN EC 81 MG TABLET PO SCH (09:26)
[2017-10-10] MEDS: LEVOTHYROXINE 50 MCG TABLET PO SCH (09:26)
[2017-10-10] MEDS: CARVEDILOL 6.25 MG TABLET PO SCH ×2 (09:27→20:55)
[2017-10-10] MEDS: LACTULOSE 20 GM/30 ML UDCUP PO SCH ×4 (09:30→20:55)
[2017-10-10] MEDS: INSULIN LISPRO 100 UNIT/ML SUBCUT SCH ×2 (09:34→17:30)
[2017-10-10] MEDS: RIFAXIMIN 550 MG TABLET PO SCH ×2 (10:26→20:55)
[2017-10-10] MEDS: VANCOMYCIN INJ 1,750 MG in SODIUM CHLORIDE 0.9% 500 ML IV SCH (12:17)
[2017-10-10 17:55] LABS: INR 1.3; PT Patient Result 13.9 SECS; Partial Thromboplastin Time 34.5 SECS (0-40)
[2017-10-10 18:34] LABS: % Iron Saturation 8.2 % (18-50)
[2017-10-10 19:29] LABS: Hepatitis A Ab IgM Quant 0.33 Index; Hepatitis A Ab IgM Result Negative (Negative); Hepatitis B Core IgM Quant 0.17 Index; Hepatitis B Core IgM Result Negative (Negative); Hepatitis B Surface Ag Quant 0.14 Index; Hepatitis B Surface Ag Result Negative (Negative); Hepatitis C Virus Ab Quant 0.12 Index; Hepatitis C Virus Ab Result Negative (Negative)
[2017-10-11 07:08] LABS: Albumin 2.8 G/DL (3.4-5.0); Bilirubin,Direct 5.1 MG/DL (0.0-0.20); Bilirubin,Total 6.1 MG/DL (0.2-1.0); Total Protein 6.6 G/DL (6.4-8.3)
[2017-10-11 07:20] LABS: Calcium 7.6 MG/DL (8.5-10.1); Osmolality,Calculated 310.1 MOS/KG (273-304); Potassium 4.3 MMOL/L (3.5-5.1)
[2017-10-11] MEDS: INSULIN LISPRO 100 UNIT/ML SUBCUT SCH ×2 (08:36→16:16)
[2017-10-11] MEDS: LEVOTHYROXINE 50 MCG TABLET PO SCH (09:05)
[2017-10-11] MEDS: RIFAXIMIN 550 MG TABLET PO SCH ×2 (09:05→21:17)
[2017-10-11] MEDS: CARVEDILOL 6.25 MG TABLET PO SCH ×2 (09:05→21:17)
[2017-10-11] MEDS: ASPIRIN EC 81 MG TABLET PO SCH (09:05)
[2017-10-11] MEDS: ENOXAPARIN 40 MG/0.4 ML SYRINGE SUBCUT SCH (09:05)
[2017-10-11] MEDS: BACITRACIN OINT 0.9 GM PACK TOP SCH (09:05)
[2017-10-11] MEDS: LACTULOSE 20 GM/30 ML UDCUP PO SCH ×3 (09:06→21:17)
[2017-10-11] MEDS: FUROSEMIDE 40 MG/4 ML VIAL IV SCH (09:06)
[2017-10-11] MEDS: ALBUTEROL/IPRATROPIUM 3 ML NEB RESP TX PRN (10:24)
[2017-10-11] MEDS ORDERED: NITROGLYCERIN SL 0.4 MG TABLET SL ONE (10:47)
[2017-10-11] MEDS ORDERED: ASPIRIN CHEW 81 MG TABLET PO ONE ×2 (10:47→10:50)
[2017-10-11] MEDS ORDERED: NITROGLYCERIN SL 0.4 MG TABLET SL PRN (10:50)
[2017-10-11 11:47] LABS: Troponin I Only 0.392 NG/ML (0.00-0.045)
[2017-10-11] MEDS: methylPREDNISolone SOD SUC 40 MG/1 ML VIAL IV SCH ×2 (12:48→21:03)
[2017-10-11] MEDS: VANCOMYCIN INJ 1,750 MG in SODIUM CHLORIDE 0.9% 500 ML IV SCH (12:48)
[2017-10-11] MEDS: hydrALAZINE 25 MG TABLET PO SCH ×2 (15:28→21:17)
[2017-10-11] MEDS: ISOSORBIDE DINITRATE 10 MG TABLET PO SCH ×2 (15:28→21:17)
[2017-10-11 17:20] LABS: Troponin I Only 0.336 NG/ML (0.00-0.045)
[2017-10-11 22:53] LABS: Troponin I Only 0.325 NG/ML (0.00-0.045)
[2017-10-12 05:57] LABS: Hematocrit 31.8 VOL% (42.0-52.0); Hemoglobin 10.5 GM/DL (14.0-18.0); Immature Granulocytes % 0.6 %; Immature Granulocytes Absolute 0.05 #; Lymphocytes # 0.6 10*3/uL (1.4-4.0); Lymphocytes % 6.5 % (21.2-54.2); Mean Corpuscular Hemoglobin 26 PG (27-34); Mean Corpuscular Volume 78.5 FL (87-102); Mean Platelet Volume 10.9 FL (9.6-12.0); Monocytes # 0.1 10*3/uL (0.11-0.8); Monocytes % 0.8 % (1.7-12.7); Neutrophils % 92.1 % (38.7-73.9); Platelet Count 122 T/CUMM (130-400); Red Blood Count 4.05 MC/CUMM (3.8-5.5); Red Cell Distribution Width 20.3 % (9.3-17.3); White Blood Count 8.7 T/CUMM (4-12)
[2017-10-12] MEDS: methylPREDNISolone SOD SUC 40 MG/1 ML VIAL IV SCH ×3 (06:00→21:31)
[2017-10-12 06:23] LABS: Lymphocytes 6 % (20-55); Segmented Neutrophils 91 % (50-85); Total Cells Counted 100
[2017-10-12 06:24] LABS: Hypochromasia 2+; Microcytosis 1+; Ovalocytes Few; Platelet Estimate Adequate; Target Cells Slight
[2017-10-12 06:25] LABS: Acanthocytes Few
[2017-10-12 06:33] LABS: Albumin 2.6 G/DL (3.4-5.0); Bilirubin,Direct 4.42 MG/DL (0.0-0.20); Bilirubin,Indirect 1.3 MG/DL (0.0-1.0); Bilirubin,Total 5.7 MG/DL (0.2-1.0); Calcium 7.6 MG/DL (8.5-10.1); Potassium 3.7 MMOL/L (3.5-5.1); Total Protein 6.4 G/DL (6.4-8.3)
[2017-10-12] MEDS: hydrALAZINE 25 MG TABLET PO SCH ×3 (10:18→21:31)
[2017-10-12] MEDS: ENOXAPARIN 40 MG/0.4 ML SYRINGE SUBCUT SCH (10:18)
[2017-10-12] MEDS: CARVEDILOL 6.25 MG TABLET PO SCH ×2 (10:18→21:30)
[2017-10-12] MEDS: LEVOTHYROXINE 50 MCG TABLET PO SCH (10:18)
[2017-10-12] MEDS: ISOSORBIDE DINITRATE 10 MG TABLET PO SCH ×3 (10:18→21:30)
[2017-10-12] MEDS: ASPIRIN EC 81 MG TABLET PO SCH (10:18)
[2017-10-12] MEDS: BACITRACIN OINT 0.9 GM PACK TOP SCH (10:18)
[2017-10-12] MEDS: RIFAXIMIN 550 MG TABLET PO SCH ×2 (10:19→21:30)
[2017-10-12] MEDS: LEVOFLOXACIN INJ 250 MG in PREMIX 1 EACH IV SCH (10:19)
[2017-10-12] MEDS: INSULIN LISPRO 100 UNIT/ML SUBCUT SCH ×2 (11:20→16:46)
[2017-10-12] MEDS: LACTULOSE 20 GM/30 ML UDCUP PO SCH ×3 (11:21→21:31)
[2017-10-12] MEDS: SPIRONOLACTONE 25 MG TABLET PO SCH (12:53)
[2017-10-12] MEDS: FUROSEMIDE 40 MG TABLET PO SCH (17:07)
[2017-10-12] MEDS: ALBUTEROL/IPRATROPIUM 3 ML NEB RESP TX PRN (22:13)
[2017-10-13] MEDS: methylPREDNISolone SOD SUC 40 MG/1 ML VIAL IV SCH ×3 (05:22→22:20)
[2017-10-13 05:48] LABS: Basophils % 0.1 % (0.0-0.8); Hematocrit 31.6 VOL% (42.0-52.0); Hemoglobin 10.8 GM/DL (14.0-18.0); Immature Granulocytes % 0.6 %; Immature Granulocytes Absolute 0.08 #; Lymphocytes # 0.5 10*3/uL (1.4-4.0); Lymphocytes % 3.6 % (21.2-54.2); Mean Corpuscular HGB Conc 34.2 GM/DL (32-36); Mean Corpuscular Hemoglobin 27 PG (27-34); Mean Corpuscular Volume 78.8 FL (87-102); Mean Platelet Volume 11.9 FL (9.6-12.0); Monocytes # 0.2 10*3/uL (0.11-0.8); Monocytes % 1.5 % (1.7-12.7); NRBC # 0.02 10*3/uL; Neutrophils # 13.5 10*3/uL (1.4-7.4); Neutrophils % 94.2 % (38.7-73.9); Platelet Count 143 T/CUMM (130-400); Red Blood Count 4.01 MC/CUMM (3.8-5.5); Red Cell Distribution Width 20.3 % (9.3-17.3); White Blood Count 14.3 T/CUMM (4-12)
[2017-10-13] MEDS: LEVOTHYROXINE 50 MCG TABLET PO SCH (06:14)
[2017-10-13 06:19] LABS: Albumin 2.4 G/DL (3.4-5.0); Bilirubin,Direct 3.78 MG/DL (0.0-0.20); Bilirubin,Indirect 0.6 MG/DL (0.0-1.0); Bilirubin,Total 4.4 MG/DL (0.2-1.0); Calcium 7.5 MG/DL (8.5-10.1); Magnesium 2.5 MG/DL (1.8-2.4); Osmolality,Calculated 306.3 MOS/KG (273-304); Potassium 4.3 MMOL/L (3.5-5.1); Total Protein 6.4 G/DL (6.4-8.3)
[2017-10-13 06:32] LABS: Lymphocytes 1 % (20-55); Segmented Neutrophils 97 % (50-85); Total Cells Counted 100
[2017-10-13 06:33] LABS: Acanthocytes Few; Hypochromasia 2+; Microcytosis 1+; Target Cells Slight
[2017-10-13 06:34] LABS: Platelet Estimate Adequate; Tear Drop Cells Slight
[2017-10-13] MEDS: INSULIN LISPRO 100 UNIT/ML SUBCUT SCH ×2 (10:06→16:58)
[2017-10-13] MEDS: BACITRACIN OINT 0.9 GM PACK TOP SCH (10:07)
[2017-10-13] MEDS: hydrALAZINE 25 MG TABLET PO SCH ×3 (10:07→22:33)
[2017-10-13] MEDS: ASPIRIN EC 81 MG TABLET PO SCH (10:07)
[2017-10-13] MEDS: LACTULOSE 20 GM/30 ML UDCUP PO SCH ×3 (10:07→22:34)
[2017-10-13] MEDS: FUROSEMIDE 40 MG TABLET PO SCH ×2 (10:07→15:26)
[2017-10-13] MEDS: SPIRONOLACTONE 25 MG TABLET PO SCH (10:07)
[2017-10-13] MEDS: CARVEDILOL 6.25 MG TABLET PO SCH ×2 (10:08→22:33)
[2017-10-13] MEDS: LEVOFLOXACIN INJ 250 MG in PREMIX 1 EACH IV SCH (10:08)
[2017-10-13] MEDS: ISOSORBIDE DINITRATE 10 MG TABLET PO SCH ×3 (10:08→22:33)
[2017-10-13] MEDS: RIFAXIMIN 550 MG TABLET PO SCH ×2 (10:09→22:33)
[2017-10-13] MEDS: ENOXAPARIN 40 MG/0.4 ML SYRINGE SUBCUT SCH (10:09)
[2017-10-13] MEDS: metOLazone 2.5 MG TABLET PO SCH (15:26)
[2017-10-14] MEDS: methylPREDNISolone SOD SUC 40 MG/1 ML VIAL IV SCH ×3 (05:43→22:28)
[2017-10-14] MEDS: LEVOTHYROXINE 50 MCG TABLET PO SCH (05:49)
[2017-10-14 08:26] LABS: Basophils % 0.1 % (0.0-0.8); Hematocrit 32.5 VOL% (42.0-52.0); Hemoglobin 10.6 GM/DL (14.0-18.0); Immature Granulocytes % 0.4 %; Immature Granulocytes Absolute 0.06 #; Lymphocytes # 0.4 10*3/uL (1.4-4.0); Lymphocytes % 2.9 % (21.2-54.2); Mean Corpuscular HGB Conc 32.6 GM/DL (32-36); Mean Corpuscular Hemoglobin 26 PG (27-34); Mean Corpuscular Volume 78.7 FL (87-102); Mean Platelet Volume 12.5 FL (9.6-12.0); Monocytes # 0.2 10*3/uL (0.11-0.8); Monocytes % 1.6 % (1.7-12.7); NRBC # 0.03 10*3/uL; Neutrophils # 13.5 10*3/uL (1.4-7.4); Platelet Count 126 T/CUMM (130-400); Red Blood Count 4.13 MC/CUMM (3.8-5.5); Red Cell Distribution Width 20.5 % (9.3-17.3); White Blood Count 14.2 T/CUMM (4-12)
[2017-10-14 08:46] LABS: Hypochromasia 1+; Lymphocytes 2 % (20-55); Ovalocytes Slight; Segmented Neutrophils 97 % (50-85); Total Cells Counted 100
[2017-10-14 08:47] LABS: Giant Platelets Few; Microcytosis Slight; Platelet Estimate Decreased
[2017-10-14 08:54] LABS: Calcium 7.4 MG/DL (8.5-10.1); Magnesium 2.5 MG/DL (1.8-2.4); Osmolality,Calculated 306.4 MOS/KG (273-304); Potassium 4.6 MMOL/L (3.5-5.1)
[2017-10-14] MEDS: metOLazone 2.5 MG TABLET PO SCH (10:08)
[2017-10-14] MEDS: hydrALAZINE 25 MG TABLET PO SCH ×3 (10:08→22:23)
[2017-10-14] MEDS: RIFAXIMIN 550 MG TABLET PO SCH ×2 (10:09→22:22)
[2017-10-14] MEDS: SPIRONOLACTONE 25 MG TABLET PO SCH (10:09)
[2017-10-14] MEDS: BACITRACIN OINT 0.9 GM PACK TOP SCH (10:09)
[2017-10-14] MEDS: CARVEDILOL 6.25 MG TABLET PO SCH ×2 (10:09→22:27)
[2017-10-14] MEDS: INSULIN LISPRO 100 UNIT/ML SUBCUT SCH ×2 (10:09→16:36)
[2017-10-14] MEDS: ISOSORBIDE DINITRATE 10 MG TABLET PO SCH ×3 (10:09→22:23)
[2017-10-14] MEDS: FUROSEMIDE 40 MG TABLET PO SCH ×2 (10:09→15:17)
[2017-10-14] MEDS: ASPIRIN EC 81 MG TABLET PO SCH (10:09)
[2017-10-14] MEDS: ENOXAPARIN 40 MG/0.4 ML SYRINGE SUBCUT SCH (10:10)
[2017-10-14] MEDS: LEVOFLOXACIN INJ 250 MG in PREMIX 1 EACH IV SCH (10:10)
[2017-10-14] MEDS: LACTULOSE 20 GM/30 ML UDCUP PO SCH ×3 (10:10→22:24)
[2017-10-15] MEDS: LEVOTHYROXINE 50 MCG TABLET PO SCH (06:10)
[2017-10-15] MEDS: methylPREDNISolone SOD SUC 40 MG/1 ML VIAL IV SCH (06:13)
[2017-10-15 06:24] LABS: Basophils % 0.2 % (0.0-0.8); Hematocrit 32.4 VOL% (42.0-52.0); Hemoglobin 10.6 GM/DL (14.0-18.0); Immature Granulocytes % 0.9 %; Immature Granulocytes Absolute 0.12 #; Lymphocytes # 0.4 10*3/uL (1.4-4.0); Lymphocytes % 3.1 % (21.2-54.2); Mean Corpuscular HGB Conc 32.7 GM/DL (32-36); Mean Corpuscular Hemoglobin 26 PG (27-34); Mean Corpuscular Volume 79.4 FL (87-102); Mean Platelet Volume 12.1 FL (9.6-12.0); Monocytes # 0.2 10*3/uL (0.11-0.8); Monocytes % 1.8 % (1.7-12.7); NRBC # 0.05 10*3/uL; Neutrophils # 12.3 10*3/uL (1.4-7.4); Platelet Count 121 T/CUMM (130-400); Red Blood Count 4.08 MC/CUMM (3.8-5.5); Red Cell Distribution Width 20.7 % (9.3-17.3); White Blood Count 13.1 T/CUMM (4-12)
[2017-10-15 07:00] LABS: Calcium 7.6 MG/DL (8.5-10.1); Osmolality,Calculated 311.4 MOS/KG (273-304); Potassium 4.5 MMOL/L (3.5-5.1)
[2017-10-15 07:30] LABS: Band Neutrophils 1 % (0-10); Giant Platelets Few; Hypochromasia 1+; Lymphocytes 4 % (20-55); Myelocytes 1 %; Platelet Estimate Decreased; Segmented Neutrophils 93 % (50-85); Total Cells Counted 100
[2017-10-15 07:31] LABS: Microcytosis Slight
[2017-10-15] MEDS: LEVOFLOXACIN 250 MG TABLET PO SCH (08:49)
[2017-10-15] MEDS: CARVEDILOL 6.25 MG TABLET PO SCH ×2 (08:49→23:18)
[2017-10-15] MEDS: ENOXAPARIN 30 MG/0.3 ML SYRINGE SUBCUT SCH (08:49)
[2017-10-15] MEDS: FUROSEMIDE 40 MG TABLET PO SCH ×2 (08:49→15:25)
[2017-10-15] MEDS: metOLazone 2.5 MG TABLET PO SCH (08:49)
[2017-10-15] MEDS: predniSONE 20 MG TABLET PO SCH (08:49)
[2017-10-15] MEDS: RIFAXIMIN 550 MG TABLET PO SCH ×2 (08:49→23:18)
[2017-10-15] MEDS: ISOSORBIDE DINITRATE 10 MG TABLET PO SCH ×3 (08:49→23:18)
[2017-10-15] MEDS: SPIRONOLACTONE 25 MG TABLET PO SCH (08:49)
[2017-10-15] MEDS: ASPIRIN EC 81 MG TABLET PO SCH (08:49)
[2017-10-15] MEDS: hydrALAZINE 25 MG TABLET PO SCH ×3 (08:50→23:18)
[2017-10-15] MEDS: INSULIN LISPRO 100 UNIT/ML SUBCUT SCH ×2 (08:50→16:40)
[2017-10-15] MEDS: BACITRACIN OINT 0.9 GM PACK TOP SCH (08:50)
[2017-10-15] MEDS: LACTULOSE 20 GM/30 ML UDCUP PO SCH ×3 (08:50→23:19)
[2017-10-15] MEDS: ALBUTEROL/IPRATROPIUM 3 ML NEB RESP TX PRN ×2 (09:53→20:19)
[2017-10-16] MEDS: ALBUTEROL/IPRATROPIUM 3 ML NEB RESP TX PRN ×2 (01:30→07:21)
[2017-10-16] MEDS: LEVOTHYROXINE 50 MCG TABLET PO SCH (05:46)
[2017-10-16 07:05] LABS: Calcium 7.5 MG/DL (8.5-10.1); Osmolality,Calculated 307.8 MOS/KG (273-304); Potassium 4.8 MMOL/L (3.5-5.1)
[2017-10-16] MEDS ORDERED: SODIUM POLYSTYRENE SULFATE 15 GM/60 ML BOTTLE PO ONE (09:00)
[2017-10-16] MEDS: ENOXAPARIN 30 MG/0.3 ML SYRINGE SUBCUT SCH (09:13)
[2017-10-16] MEDS: hydrALAZINE 25 MG TABLET PO SCH ×3 (09:14→22:08)
[2017-10-16] MEDS: INSULIN LISPRO 100 UNIT/ML SUBCUT SCH ×2 (09:14→17:53)
[2017-10-16] MEDS: CARVEDILOL 6.25 MG TABLET PO SCH ×2 (09:15→22:07)
[2017-10-16] MEDS: RIFAXIMIN 550 MG TABLET PO SCH ×2 (09:15→22:08)
[2017-10-16] MEDS: ISOSORBIDE DINITRATE 10 MG TABLET PO SCH ×3 (09:15→22:07)
[2017-10-16] MEDS: metOLazone 2.5 MG TABLET PO SCH (09:15)
[2017-10-16] MEDS: BACITRACIN OINT 0.9 GM PACK TOP SCH (09:15)
[2017-10-16] MEDS: ASPIRIN EC 81 MG TABLET PO SCH (09:16)
[2017-10-16] MEDS: SPIRONOLACTONE 25 MG TABLET PO SCH (09:16)
[2017-10-16] MEDS: predniSONE 20 MG TABLET PO SCH (09:16)
[2017-10-16] MEDS: FUROSEMIDE 40 MG TABLET PO SCH ×2 (09:16→19:55)
[2017-10-16] MEDS: LEVOFLOXACIN 250 MG TABLET PO SCH (09:17)
[2017-10-16] MEDS: LACTULOSE 20 GM/30 ML UDCUP PO SCH ×3 (12:38→22:07)
[2017-10-17] MEDS: LEVOTHYROXINE 50 MCG TABLET PO SCH (05:52)
[2017-10-17 07:33] LABS: Basophils % 0.1 % (0.0-0.8); Hematocrit 34.7 VOL% (42.0-52.0); Hemoglobin 11.3 GM/DL (14.0-18.0); Immature Granulocytes Absolute 0.14 #; Lymphocytes # 0.5 10*3/uL (1.4-4.0); Lymphocytes % 3.5 % (21.2-54.2); Mean Corpuscular HGB Conc 32.6 GM/DL (32-36); Mean Corpuscular Hemoglobin 26 PG (27-34); Mean Corpuscular Volume 78.7 FL (87-102); Mean Platelet Volume 11.8 FL (9.6-12.0); Monocytes # 0.7 10*3/uL (0.11-0.8); NRBC # 0.03 10*3/uL; Neutrophils # 13.3 10*3/uL (1.4-7.4); Neutrophils % 90.4 % (38.7-73.9); Platelet Count 144 T/CUMM (130-400); Red Blood Count 4.41 MC/CUMM (3.8-5.5); Red Cell Distribution Width 20.4 % (9.3-17.3); White Blood Count 14.7 T/CUMM (4-12)
[2017-10-17 08:06] LABS: Calcium 7.9 MG/DL (8.5-10.1); Magnesium 2.6 MG/DL (1.8-2.4); Osmolality,Calculated 310.7 MOS/KG (273-304); Potassium 4.7 MMOL/L (3.5-5.1)
[2017-10-17 08:08] LABS: Giant Platelets Few; Hypochromasia 1+; Lymphocytes 6 % (20-55); Ovalocytes Slight; Platelet Estimate Normal; Segmented Neutrophils 89 % (50-85); Total Cells Counted 100
[2017-10-17 08:09] LABS: Albumin 3.1 G/DL (3.4-5.0); Bilirubin,Direct 3.24 MG/DL (0.0-0.20); Bilirubin,Indirect 0.9 MG/DL (0.0-1.0); Bilirubin,Total 4.1 MG/DL (0.2-1.0); Calcium 7.9 MG/DL (8.5-10.1); Microcytosis Slight; Osmolality,Calculated 309.7 MOS/KG (273-304); Potassium 4.5 MMOL/L (3.5-5.1); Total Protein 7.2 G/DL (6.4-8.3)
[2017-10-17] MEDS: hydrALAZINE 25 MG TABLET PO SCH ×3 (09:11→22:22)
[2017-10-17] MEDS: SPIRONOLACTONE 25 MG TABLET PO SCH (09:11)
[2017-10-17] MEDS: ASPIRIN EC 81 MG TABLET PO SCH (09:12)
[2017-10-17] MEDS: ISOSORBIDE DINITRATE 10 MG TABLET PO SCH ×3 (09:12→22:22)
[2017-10-17] MEDS: predniSONE 20 MG TABLET PO SCH (09:12)
[2017-10-17] MEDS: CARVEDILOL 6.25 MG TABLET PO SCH ×2 (09:12→22:22)
[2017-10-17] MEDS: metOLazone 2.5 MG TABLET PO SCH (09:12)
[2017-10-17] MEDS: FUROSEMIDE 40 MG TABLET PO SCH (09:12)
[2017-10-17] MEDS: BACITRACIN OINT 0.9 GM PACK TOP SCH (09:12)
[2017-10-17] MEDS: RIFAXIMIN 550 MG TABLET PO SCH ×2 (09:12→22:22)
[2017-10-17] MEDS: LEVOFLOXACIN 250 MG TABLET PO SCH (09:12)
[2017-10-17] MEDS: INSULIN LISPRO 100 UNIT/ML SUBCUT SCH ×2 (09:13→17:03)
[2017-10-17] MEDS: LACTULOSE 20 GM/30 ML UDCUP PO SCH ×3 (09:13→22:25)
[2017-10-17] MEDS: ENOXAPARIN 30 MG/0.3 ML SYRINGE SUBCUT SCH (09:14)
[2017-10-17] MEDS: ALBUTEROL/IPRATROPIUM 3 ML NEB RESP TX PRN (15:00)
[2017-10-18] MEDS: LEVOTHYROXINE 50 MCG TABLET PO SCH (06:17)
[2017-10-18 06:31] LABS: Basophils % 0.1 % (0.0-0.8); Eosinophils % 0.1 % (0.00-10.9); Hemoglobin 10.7 GM/DL (14.0-18.0); Immature Granulocytes % 0.7 %; Immature Granulocytes Absolute 0.09 #; Lymphocytes # 0.6 10*3/uL (1.4-4.0); Mean Corpuscular HGB Conc 33.4 GM/DL (32-36); Mean Corpuscular Hemoglobin 26 PG (27-34); Mean Corpuscular Volume 76.7 FL (87-102); Monocytes # 0.8 10*3/uL (0.11-0.8); Monocytes % 6.4 % (1.7-12.7); NRBC # 0.03 10*3/uL; Neutrophils # 11.2 10*3/uL (1.4-7.4); Neutrophils % 87.7 % (38.7-73.9); Platelet Count 133 T/CUMM (130-400); Red Blood Count 4.17 MC/CUMM (3.8-5.5); Red Cell Distribution Width 19.8 % (9.3-17.3); White Blood Count 12.8 T/CUMM (4-12)
[2017-10-18 06:52] LABS: Calcium 7.8 MG/DL (8.5-10.1); Magnesium 2.6 MG/DL (1.8-2.4); Osmolality,Calculated 313.7 MOS/KG (273-304); Potassium 4.5 MMOL/L (3.5-5.1)
[2017-10-18 06:53] LABS: Hypochromasia 2+; Target Cells Slight
[2017-10-18 06:54] LABS: Albumin 2.7 G/DL (3.4-5.0); Bilirubin,Total 3.8 MG/DL (0.2-1.0); Calcium 7.8 MG/DL (8.5-10.1); Microcytosis 1+; Osmolality,Calculated 308.8 MOS/KG (273-304); Ovalocytes Slight; Potassium 4.6 MMOL/L (3.5-5.1); Total Protein 6.6 G/DL (6.4-8.3)
[2017-10-18 06:55] LABS: Acanthocytes Few; Platelet Estimate Adequate; Polychromasia Slight
[2017-10-18] MEDS: ALBUTEROL/IPRATROPIUM 3 ML NEB RESP TX PRN ×2 (07:00→19:25)
[2017-10-18] MEDS: INSULIN LISPRO 100 UNIT/ML SUBCUT SCH ×2 (09:38→17:26)
[2017-10-18] MEDS: LACTULOSE 20 GM/30 ML UDCUP PO SCH ×3 (09:53→22:31)
[2017-10-18] MEDS: FUROSEMIDE 40 MG TABLET PO SCH (09:54)
[2017-10-18] MEDS: hydrALAZINE 25 MG TABLET PO SCH ×3 (09:54→22:29)
[2017-10-18] MEDS: LEVOFLOXACIN 250 MG TABLET PO SCH (09:54)
[2017-10-18] MEDS: predniSONE 10 MG TABLET PO SCH (09:54)
[2017-10-18] MEDS: RIFAXIMIN 550 MG TABLET PO SCH ×2 (09:54→22:29)
[2017-10-18] MEDS: ASPIRIN EC 81 MG TABLET PO SCH (09:54)
[2017-10-18] MEDS: ISOSORBIDE DINITRATE 10 MG TABLET PO SCH ×3 (09:54→22:28)
[2017-10-18] MEDS: CARVEDILOL 6.25 MG TABLET PO SCH ×2 (09:54→22:29)
[2017-10-18] MEDS: SPIRONOLACTONE 25 MG TABLET PO SCH (09:54)
[2017-10-18] MEDS: metOLazone 2.5 MG TABLET PO SCH (09:54)
[2017-10-18] MEDS: BACITRACIN OINT 0.9 GM PACK TOP SCH (09:55)
[2017-10-18] MEDS: ENOXAPARIN 30 MG/0.3 ML SYRINGE SUBCUT SCH (09:55)
[2017-10-19] MEDS: LEVOTHYROXINE 50 MCG TABLET PO SCH (06:49)
[2017-10-19] MEDS: INSULIN LISPRO 100 UNIT/ML SUBCUT SCH (08:15)
[2017-10-19] MEDS: predniSONE 10 MG TABLET PO SCH (09:35)
[2017-10-19] MEDS: ISOSORBIDE DINITRATE 10 MG TABLET PO SCH ×2 (09:35→14:57)
[2017-10-19] MEDS: BACITRACIN OINT 0.9 GM PACK TOP SCH (09:35)
[2017-10-19] MEDS: CARVEDILOL 6.25 MG TABLET PO SCH (09:36)
[2017-10-19] MEDS: hydrALAZINE 25 MG TABLET PO SCH ×2 (09:36→14:58)
[2017-10-19] MEDS: ENOXAPARIN 30 MG/0.3 ML SYRINGE SUBCUT SCH (09:36)
[2017-10-19] MEDS: RIFAXIMIN 550 MG TABLET PO SCH (09:36)
[2017-10-19] MEDS: LEVOFLOXACIN 250 MG TABLET PO SCH (09:36)
[2017-10-19] MEDS: FUROSEMIDE 40 MG TABLET PO SCH (09:36)
[2017-10-19] MEDS: SPIRONOLACTONE 25 MG TABLET PO SCH (09:36)
[2017-10-19] MEDS: metOLazone 2.5 MG TABLET PO SCH (09:36)
[2017-10-19] MEDS: LACTULOSE 20 GM/30 ML UDCUP PO SCH ×2 (09:37→14:54)
[2017-10-19] MEDS: ASPIRIN EC 81 MG TABLET PO SCH (09:42)
[2017-10-19 11:42] VITALS: BP 115/72
== END 2017-10-19 15:31 | DRG 291 ==
LOC: EDBD → EDUNIT# → N.ED 17:10 → N.EDINP 20:35 → SUATTDRO 20:35 → N.2E 20:55
PROVIDERS: ADMIT Internal Medicine; ATTEND Internal Medicine

== ENCOUNTER 2017-11-27 16:32 | Inpatient (IN) ==
[2017-11-27] MEDS ORDERED: FUROSEMIDE 40 MG/4 ML VIAL IV STA (17:34)
[2017-11-27] MEDS ORDERED: ALBUTEROL/IPRATROPIUM 3 ML NEB RESP TX STA (17:34)
[2017-11-27] MEDS ORDERED: FUROSEMIDE 100 MG/10 ML VIAL ONE (18:26)
[2017-11-27 18:46] LABS: Basophils % 0.1 % (0.0-0.8); Eosinophils % 0.1 % (0.00-10.9); Hematocrit 29.9 VOL% (42.0-52.0); Hemoglobin 9.8 GM/DL (14.0-18.0); Immature Granulocytes % 0.8 %; Immature Granulocytes Absolute 0.08 #; Lymphocytes # 0.9 10*3/uL (1.4-4.0); Lymphocytes % 9.4 % (21.2-54.2); Mean Corpuscular HGB Conc 32.8 GM/DL (32-36); Mean Corpuscular Hemoglobin 26 PG (27-34); Mean Corpuscular Volume 79.7 FL (87-102); Mean Platelet Volume 11.8 FL (9.6-12.0); Monocytes # 0.8 10*3/uL (0.11-0.8); Monocytes % 7.9 % (1.7-12.7); NRBC # 0.06 10*3/uL; Neutrophils # 7.9 10*3/uL (1.4-7.4); Neutrophils % 81.7 % (38.7-73.9); Platelet Count 199 T/CUMM (130-400); Red Blood Count 3.75 MC/CUMM (3.8-5.5); Red Cell Distribution Width 23.3 % (9.3-17.3); White Blood Count 9.7 T/CUMM (4-12)
[2017-11-27 18:50] LABS: Apearance,Urine Slightly Hazy (Clear); Bacteria,Urine Many /HPF (Few); Bilirubin,Urine Negative (Negative); Blood, Urine Small mg/dL (Negative); Glucose,Urine (UA) Negative (Negative); Ketones,Urine 5 mg/dL (Negative); Mucus,Urine Occasional /LPF (Occasional); Nitrite,Urine Negative (Negative); Protein,Urine 100 MG/DL; RBC,Urine 2 /HPF (0-4); Urine Specific Gravity 1.014 (1.001-1.035); WBC,Urine 42 /HPF (0-6)
[2017-11-27 18:51] LABS: Urine Color Yellow (Yellow)
[2017-11-27 19:01] LABS: INR 1.3
[2017-11-27] MEDS ORDERED: cefTRIAXone 1,000 MG in SODIUM CHLORIDE 0.9% 100 ML IV STA (19:06)
[2017-11-27 19:15] LABS: Ammonia 70 UMOL/L (11-32)
[2017-11-27 19:21] LABS: Alanine Aminotransferase 16 U/L (16-61); Albumin 2.7 G/DL (3.4-5.0); Alkaline Phosphatase 103 U/L (45-117); Aspartate Amino Transferase 23 U/L (0-37); Blood Urea Nitrogen 113 MG/DL (7-18); Calcium 8.3 MG/DL (8.5-10.1); Glucose 105 MG/DL (74-106); Lactic Acid 1.6 MMOL/L (0.4-2.0); Potassium 5.1 MMOL/L (3.5-5.1); Sodium 136 MMOL/L (136-145); Total Protein 6.9 G/DL (6.4-8.3)
[2017-11-27 19:24] LABS: Troponin I Only 0.123 NG/ML (0.00-0.045)
[2017-11-27] MEDS ORDERED: cefTRIAXone 1,000 MG VIAL ONE ×2 (19:26→22:05)
[2017-11-27 19:28] LABS: Prolactin 36.8 NG/ML
[2017-11-27 19:58] LABS: B-Type Natriuretic Peptide > 5000 PG/ML (2-100)
[2017-11-27 20:56] LABS: Sedimentation Rate-Westergren 45 MM/HR (0-20)
[2017-11-27] MEDS ORDERED: ACETAMINOPHEN 325 MG TABLET PO PRN (21:10)
[2017-11-27] MEDS ORDERED: ZALEPLON 5 MG CAPSULE PO PRN (21:10)
[2017-11-27] MEDS ORDERED: ZINC OXIDE PASTE 113 GM TUBE TOP PRN (21:10)
[2017-11-27] MEDS ORDERED: ONDANSETRON 4 MG/2 ML VIAL IV PRN (21:10)
[2017-11-27] MEDS ORDERED: LABETALOL 20 MG/4 ML SYRINGE IV PRN (21:10)
[2017-11-27 21:44] LABS: Barbiturates Screen,Urine Negative (Negative); Benzodiazepines Screen,Urine Negative (Negative); Cannabinoid Screen,Urine Negative (Negative); Opiate Screen,Urine Negative (Negative); Phencyclidine Screen,Urine Negative (Negative)
[2017-11-27] MEDS: ATORVASTATIN 40 MG TABLET PO SCH (22:00)
[2017-11-27] MEDS: ENOXAPARIN 30 MG/0.3 ML SYRINGE SUBCUT SCH (22:01)
[2017-11-27] MEDS ORDERED: ENOXAPARIN 30 MG/0.3 ML SYRINGE ONE (22:05)
[2017-11-27] MEDS ORDERED: ATORVASTATIN 40 MG TABLET ONE (22:05)
[2017-11-27] MEDS ORDERED: LACTULOSE 20 GM/30 ML UDCUP ONE (22:05)
[2017-11-27] MEDS: LACTULOSE 20 GM/30 ML UDCUP PO SCH (22:09)
[2017-11-27] MEDS: BUDESONIDE/FORMOTEROL 160-4.5 INHALER 6 GM INH SCH (22:12)
[2017-11-27] MEDS: cefTRIAXone 1,000 MG in SYRINGE 1 EACH IV SCH (22:22)
[2017-11-27] MEDS: ALBUTEROL/IPRATROPIUM 3 ML NEB RESP TX SCH (23:10)
[2017-11-27 23:15] LABS: Thyroid Stimulating Hormone 21.8 uIU/ml (0.358-3.74)
[2017-11-27 23:16] LABS: Troponin I Only 0.117 NG/ML (0.00-0.045)
[2017-11-28 03:40] LABS: Albumin 2.6 G/DL (3.4-5.0); Bilirubin,Total 4.1 MG/DL (0.2-1.0); Calcium 8.2 MG/DL (8.5-10.1); Osmolality,Calculated 308.7 MOS/KG (273-304); Potassium 4.3 MMOL/L (3.5-5.1); Risk Ratio 3.97; Total Protein 6.4 G/DL (6.4-8.3); VLDL CHOLESTEROL 20.2 MG/DL
[2017-11-28] MEDS: ALBUTEROL/IPRATROPIUM 3 ML NEB RESP TX SCH ×6 (04:10→23:04)
[2017-11-28 04:34] LABS: Basophils % 0.1 % (0.0-0.8); Eosinophils % 0.4 % (0.00-10.9); Hematocrit 29.5 VOL% (42.0-52.0); Hemoglobin 9.8 GM/DL (14.0-18.0); Immature Granulocytes % 0.7 %; Immature Granulocytes Absolute 0.07 #; Lymphocytes # 0.9 10*3/uL (1.4-4.0); Lymphocytes % 8.3 % (21.2-54.2); Mean Corpuscular HGB Conc 33.2 GM/DL (32-36); Mean Corpuscular Hemoglobin 26 PG (27-34); Mean Corpuscular Volume 79.5 FL (87-102); Monocytes # 0.7 10*3/uL (0.11-0.8); Monocytes % 7.1 % (1.7-12.7); NRBC # 0.05 10*3/uL; Neutrophils # 8.6 10*3/uL (1.4-7.4); Neutrophils % 83.4 % (38.7-73.9); Platelet Count 204 T/CUMM (130-400); Red Blood Count 3.71 MC/CUMM (3.8-5.5); Red Cell Distribution Width 23.3 % (9.3-17.3); White Blood Count 10.3 T/CUMM (4-12)
[2017-11-28 04:57] LABS: Anisocytosis 1+; Hypochromasia 1+; Microcytosis 1+
[2017-11-28 04:58] LABS: Ovalocytes Slight; Target Cells Slight
[2017-11-28 04:59] LABS: Burr Cells Slight; Platelet Estimate Normal
[2017-11-28] MEDS: LEVOTHYROXINE 50 MCG TABLET PO SCH (07:41)
[2017-11-28] MEDS ORDERED: FUROSEMIDE 40 MG/4 ML VIAL ONE (07:44)
[2017-11-28] MEDS: FUROSEMIDE 40 MG/4 ML VIAL IV SCH ×2 (07:44→15:55)
[2017-11-28] MEDS ORDERED: LACTULOSE 20 GM/30 ML UDCUP ONE (08:32)
[2017-11-28] MEDS ORDERED: ASPIRIN 325 MG TABLET ONE (08:32)
[2017-11-28] MEDS ORDERED: PANTOPRAZOLE 40 MG TABLET PO ONE (08:32)
[2017-11-28] MEDS: PANTOPRAZOLE 40 MG TABLET PO SCH (08:45)
[2017-11-28] MEDS: LACTULOSE 20 GM/30 ML UDCUP PO SCH ×3 (08:48→21:44)
[2017-11-28] MEDS: metOLazone 5 MG TABLET PO SCH (08:49)
[2017-11-28] MEDS ORDERED: ASPIRIN 300 MG SUPP RECTAL SCH (09:00)
[2017-11-28] MEDS: IPRATROPIUM 500 MCG/2.5 ML NEB RESP TX SCH (14:51)
[2017-11-28] MEDS: BUDESONIDE/FORMOTEROL 160-4.5 INHALER 6 GM INH SCH ×2 (15:55→21:46)
[2017-11-28 16:16] LABS: % Iron Saturation 14.6 % (18-50); Ferritin 93.9 ng/ml (26-388)
[2017-11-28] MEDS: ENOXAPARIN 30 MG/0.3 ML SYRINGE SUBCUT SCH (21:44)
[2017-11-28] MEDS: ATORVASTATIN 40 MG TABLET PO SCH (21:44)
[2017-11-28] MEDS: cefTRIAXone 1,000 MG in SYRINGE 1 EACH IV SCH (21:45)
[2017-11-29] MEDS: ALBUTEROL/IPRATROPIUM 3 ML NEB RESP TX SCH ×5 (03:09→20:06)
[2017-11-29] MEDS: LEVOTHYROXINE 50 MCG TABLET PO SCH (05:46)
[2017-11-29 06:55] LABS: Basophils % 0.1 % (0.0-0.8); Eosinophils % 0.4 % (0.00-10.9); Hematocrit 30.8 VOL% (42.0-52.0); Hemoglobin 9.8 GM/DL (14.0-18.0); Immature Granulocytes % 0.6 %; Immature Granulocytes Absolute 0.06 #; Lymphocytes # 0.8 10*3/uL (1.4-4.0); Lymphocytes % 7.6 % (21.2-54.2); Mean Corpuscular HGB Conc 31.8 GM/DL (32-36); Mean Corpuscular Hemoglobin 26 PG (27-34); Mean Corpuscular Volume 81.1 FL (87-102); Mean Platelet Volume 11.5 FL (9.6-12.0); Monocytes # 0.8 10*3/uL (0.11-0.8); Monocytes % 7.1 % (1.7-12.7); NRBC # 0.02 10*3/uL; Neutrophils # 8.9 10*3/uL (1.4-7.4); Neutrophils % 84.2 % (38.7-73.9); Platelet Count 198 T/CUMM (130-400); Red Cell Distribution Width 23.4 % (9.3-17.3); White Blood Count 10.5 T/CUMM (4-12)
[2017-11-29 07:12] LABS: Hypochromasia 1+; Platelet Estimate Adequate
[2017-11-29 07:13] LABS: Giant Platelets Few; Microcytosis Slight; Ovalocytes Slight
[2017-11-29 07:41] LABS: Albumin 2.5 G/DL (3.4-5.0); Bilirubin,Total 3.5 MG/DL (0.2-1.0); Calcium 8.5 MG/DL (8.5-10.1); Osmolality,Calculated 305.7 MOS/KG (273-304); Total Protein 6.3 G/DL (6.4-8.3)
[2017-11-29] MEDS: ASPIRIN 325 MG TABLET PO SCH (08:14)
[2017-11-29] MEDS: BUDESONIDE/FORMOTEROL 160-4.5 INHALER 6 GM INH SCH ×2 (08:14→21:23)
[2017-11-29] MEDS: metOLazone 5 MG TABLET PO SCH (08:14)
[2017-11-29] MEDS: PANTOPRAZOLE 40 MG TABLET PO SCH (08:14)
[2017-11-29] MEDS: LACTULOSE 20 GM/30 ML UDCUP PO SCH ×3 (08:14→21:22)
[2017-11-29] MEDS: FUROSEMIDE 40 MG/4 ML VIAL IV SCH ×2 (08:14→14:59)
[2017-11-29] MEDS: IPRATROPIUM 500 MCG/2.5 ML NEB RESP TX SCH ×2 (09:29→20:08)
[2017-11-29] MEDS ORDERED: SKIN HEALING OINT (AQUAPHOR) 50 GM TUBE TOP PRN (14:48)
[2017-11-29] MEDS: SILVER SULFADIAZINE 1% CREAM 25 GM TUBE TOP SCH ×2 (15:01→21:23)
[2017-11-29] MEDS: BACITRACIN OINT 0.9 GM PACK TOP SCH (15:01)
[2017-11-29] MEDS: ATORVASTATIN 40 MG TABLET PO SCH (21:21)
[2017-11-29] MEDS: cefTRIAXone 1,000 MG in SYRINGE 1 EACH IV SCH (21:22)
[2017-11-29] MEDS: ENOXAPARIN 30 MG/0.3 ML SYRINGE SUBCUT SCH (21:22)
[2017-11-30] MEDS: ALBUTEROL/IPRATROPIUM 3 ML NEB RESP TX SCH ×3 (00:20→14:40)
[2017-11-30 05:23] LABS: Basophils % 0.1 % (0.0-0.8); Eosinophils # 0.2 10*3/uL (0.0-0.87); Eosinophils % 1.8 % (0.00-10.9); Hematocrit 29.1 VOL% (42.0-52.0); Hemoglobin 9.7 GM/DL (14.0-18.0); Immature Granulocytes % 0.8 %; Immature Granulocytes Absolute 0.07 #; Lymphocytes # 1.1 10*3/uL (1.4-4.0); Lymphocytes % 12.4 % (21.2-54.2); Mean Corpuscular HGB Conc 33.3 GM/DL (32-36); Mean Corpuscular Hemoglobin 26 PG (27-34); Mean Corpuscular Volume 79.3 FL (87-102); Mean Platelet Volume 10.4 FL (9.6-12.0); Monocytes # 0.7 10*3/uL (0.11-0.8); Monocytes % 8.4 % (1.7-12.7); Neutrophils # 6.5 10*3/uL (1.4-7.4); Neutrophils % 76.5 % (38.7-73.9); Platelet Count 171 T/CUMM (130-400); Red Blood Count 3.67 MC/CUMM (3.8-5.5); Red Cell Distribution Width 23.3 % (9.3-17.3); White Blood Count 8.4 T/CUMM (4-12)
[2017-11-30] MEDS: LEVOTHYROXINE 50 MCG TABLET PO SCH (05:50)
[2017-11-30 05:52] LABS: Hypochromasia 1+; Microcytosis 1+; Target Cells Slight
[2017-11-30 05:53] LABS: Anisocytosis 1+; Ovalocytes Slight; Platelet Estimate Adequate; Tear Drop Cells Slight
[2017-11-30 05:54] LABS: Albumin 2.4 G/DL (3.4-5.0); Bilirubin,Total 4.2 MG/DL (0.2-1.0); Calcium 8.2 MG/DL (8.5-10.1); Osmolality,Calculated 303.5 MOS/KG (273-304); Potassium 3.6 MMOL/L (3.5-5.1); Total Protein 6.1 G/DL (6.4-8.3)
[2017-11-30] MEDS: LACTULOSE 20 GM/30 ML UDCUP PO SCH ×3 (08:06→21:37)
[2017-11-30] MEDS: BACITRACIN OINT 0.9 GM PACK TOP SCH (08:06)
[2017-11-30] MEDS: metOLazone 5 MG TABLET PO SCH (08:06)
[2017-11-30] MEDS: PANTOPRAZOLE 40 MG TABLET PO SCH (08:06)
[2017-11-30] MEDS: FUROSEMIDE 40 MG/4 ML VIAL IV SCH ×2 (08:06→15:01)
[2017-11-30] MEDS: ASPIRIN 325 MG TABLET PO SCH (08:06)
[2017-11-30] MEDS: BUDESONIDE/FORMOTEROL 160-4.5 INHALER 6 GM INH SCH ×2 (08:07→21:38)
[2017-11-30] MEDS: SILVER SULFADIAZINE 1% CREAM 25 GM TUBE TOP SCH ×2 (08:07→21:38)
[2017-11-30] MEDS: IRON SUCROSE 200 MG in SODIUM CHLORIDE 0.9% 100 ML IV SCH (10:24)
[2017-11-30] MEDS: METOPROLOL SUCCINATE XL 25 MG TABLET PO SCH (11:05)
[2017-11-30] MEDS ORDERED: TUBERCULIN SKIN TEST 0.1 ML SYRINGE INTRADERM ONE (11:40)
[2017-11-30] MEDS ORDERED: FUROSEMIDE 100 MG/10 ML VIAL ONE (14:52)
[2017-11-30] MEDS ORDERED: POTASSIUM CHLORIDE 10 MEQ TABLET PO SCH (21:00)
[2017-11-30] MEDS: ENOXAPARIN 30 MG/0.3 ML SYRINGE SUBCUT SCH (21:37)
[2017-11-30] MEDS: ATORVASTATIN 40 MG TABLET PO SCH (21:37)
[2017-11-30] MEDS: cefTRIAXone 1,000 MG in SYRINGE 1 EACH IV SCH (21:37)
[2017-12-01] MEDS: ALBUTEROL/IPRATROPIUM 3 ML NEB RESP TX SCH ×3 (00:05→14:23)
[2017-12-01] MEDS: LEVOTHYROXINE 50 MCG TABLET PO SCH (05:36)
[2017-12-01 07:09] LABS: Basophils % 0.1 % (0.0-0.8); Eosinophils # 0.1 10*3/uL (0.0-0.87); Hematocrit 29.6 VOL% (42.0-52.0); Hemoglobin 9.7 GM/DL (14.0-18.0); Immature Granulocytes % 0.5 %; Immature Granulocytes Absolute 0.04 #; Lymphocytes # 0.9 10*3/uL (1.4-4.0); Lymphocytes % 10.8 % (21.2-54.2); Mean Corpuscular HGB Conc 32.8 GM/DL (32-36); Mean Corpuscular Hemoglobin 26 PG (27-34); Mean Corpuscular Volume 79.6 FL (87-102); Mean Platelet Volume 11.4 FL (9.6-12.0); Monocytes # 0.6 10*3/uL (0.11-0.8); Monocytes % 7.7 % (1.7-12.7); Neutrophils # 6.5 10*3/uL (1.4-7.4); Neutrophils % 79.9 % (38.7-73.9); Platelet Count 190 T/CUMM (130-400); Red Blood Count 3.72 MC/CUMM (3.8-5.5); Red Cell Distribution Width 23.1 % (9.3-17.3); White Blood Count 8.1 T/CUMM (4-12)
[2017-12-01 07:36] LABS: Albumin 2.6 G/DL (3.4-5.0); Bilirubin,Total 2.9 MG/DL (0.2-1.0); Calcium 8.3 MG/DL (8.5-10.1); Osmolality,Calculated 300.5 MOS/KG (273-304); Potassium 3.1 MMOL/L (3.5-5.1); Total Protein 6.5 G/DL (6.4-8.3)
[2017-12-01 08:00] LABS: Hypochromasia 2+; Microcytosis 2+; Platelet Estimate Adequate; Target Cells Slight
[2017-12-01] MEDS ORDERED: POTASSIUM CHLORIDE 20 MEQ TABLET PO SCH (09:00)
[2017-12-01] MEDS: FUROSEMIDE 40 MG/4 ML VIAL IV SCH ×2 (10:36→15:56)
[2017-12-01] MEDS: IRON SUCROSE 200 MG in SODIUM CHLORIDE 0.9% 100 ML IV SCH (11:06)
[2017-12-01] MEDS: LACTULOSE 20 GM/30 ML UDCUP PO SCH ×2 (11:41→15:56)
[2017-12-01] MEDS: metOLazone 5 MG TABLET PO SCH (11:41)
[2017-12-01] MEDS: METOPROLOL SUCCINATE XL 25 MG TABLET PO SCH (11:42)
[2017-12-01] MEDS: BUDESONIDE/FORMOTEROL 160-4.5 INHALER 6 GM INH SCH (11:42)
[2017-12-01] MEDS: BACITRACIN OINT 0.9 GM PACK TOP SCH (11:42)
[2017-12-01] MEDS: ASPIRIN 325 MG TABLET PO SCH (11:42)
[2017-12-01] MEDS: PANTOPRAZOLE 40 MG TABLET PO SCH (11:42)
[2017-12-01] MEDS: SILVER SULFADIAZINE 1% CREAM 25 GM TUBE TOP SCH (12:15)
[2017-12-01] MEDS ORDERED: POTASSIUM CHLORIDE 20 MEQ TABLET PO ONE (12:36)
[2017-12-01 17:15] VITALS: BP 147/72
== END 2017-12-01 17:00 | DRG 441 ==
LOC: EDUNIT# → EDBD → N.ED 16:32 → N.EDINP 20:30 → N.5E 11-28 12:43
PROVIDERS: ADMIT Internal Medicine; ATTEND Internal Medicine